=== PATIENT | female | born 1965 | race Caucasian/White ===

== ENCOUNTER 2016-09-17 12:09 | Emergency (ER) | payer MEDICARE, MEDICAID ==
[~2016-09-17] VITALS: Ht 170.2 cm; Wt 108.9 kg
[2016-09-17 12:13] VITALS: BP 110/76
== END 2016-09-17 13:03 | disposition home or self-care (01) ==
LOC: ER 12:11
DX: R19.7 Diarrhea, unspecified (principal)

== ENCOUNTER 2017-08-14 09:30 | Inpatient (IN) | payer MEDICARE, MEDICAID ==
[~2017-08-14] VITALS: Ht 167.6 cm; Wt 106.4 kg
[2017-08-14 10:05] LABS: Hematocrit 37.4 % (36.0-46.0); Hemoglobin 12.5 g/dL (12.2-16.2); Mean Corpuscular Hemoglobin 32.8 pg (28.0-32.0); Mean Corpuscular Hgb Conc. 33.4 g/dL (32.0-36.0); Mean Corpuscular Volume 98.2 fL (80.0-100.0); Platelet Count (auto) 87 10^3/uL (140-450); Red Blood Cells 3.81 10^6/uL (4.0-5.20); White Blood Cell 4.8 10^3/uL (4.4-10.8)
[2017-08-14 10:17] LABS: Red Cell Distribution Width 20.2 % (11.8-14.3)
[2017-08-14 10:18] LABS: Basophils % (manual) 0 (0.0-2.0); Blast Cells 0; Eosinophils % (manual) 0 (0-7); Metamyelocytes % 0; Myelocytes % 0; Promyelocytes % 0; Reactive Lymphocytes 0
[2017-08-14 10:33] LABS: Sodium 141 mmol/L (136-145)
[2017-08-14 10:34] LABS: Alanine Aminotransferase 571 U/L (13-56); Albumin 1.8 g/dL (3.4-5.0); Alkaline Phosphatase 208 U/L (45-117); Amylase 28 U/L (25-115); Anion Gap 8 (5-15); Aspartate Aminotransferase 632 U/L (15-37); BUN/Creatinine Ratio 9.3; Bilirubin, Total 11.1 mg/dL (0.2-1.0); Blood Urea Nitrogen 12 mg/dL (7-18); Calcium 8.8 mg/dL (8.5-10.1); Carbon Dioxide 22 mmol/L (21-32); Chloride 111 mmol/L (98-107); GFR African American 56 mL/min; GFR Non-African American 46 mL/min; Glucose 103 mg/dL (74-106); Lipase 121 U/L (73-393); Potassium 4.1 mmol/L (3.5-5.1)
[2017-08-14 10:48] LABS: Band Neutrophils % (manual) 1; Lymphocytes % (manual) 17 (10.0-50.0); Monocytes % (manual) 11 (0-12)
[2017-08-14] MEDS ORDERED: AZITHROMYCIN 500MG/ 250ML 250 ML IV ONE (11:15)
[2017-08-14] MEDS ORDERED: cefTRIAXone 1GM/10ml IVPUSH 10 ML IV ONE (11:15)
[2017-08-14 11:30] LABS: Lactic Acid w/Reflex 2.4 mmol/L (0.4-2.0)
[2017-08-14] MEDS ORDERED: LACTULOSE 20Gm/30ML SOLN PO PRN (14:00)
[2017-08-14] MEDS ORDERED: CITALOPRAM HYDROBR 20 MG TAB PO ONE (14:15)
[2017-08-14] MEDS ORDERED: FOLIC ACID 1 MG TAB PO ONE (14:15)
[2017-08-14] MEDS ORDERED: PANTOPRAZOLE 40 MG TAB PO ONE (14:15)
[2017-08-14] MEDS: SODIUM CHLORIDE 0.9% 1,000 ML IV SCH (15:23)
[2017-08-14 17:00] VITALS: BP 82/45
[2017-08-14 22:00] VITALS: BP 88/50
[2017-08-14 23:05] VITALS: BP 93/42
[2017-08-15] VITALS (8 sets, daily range): BP systolic 81–93; BP diastolic 39–55
[2017-08-15 06:21] LABS: Basophils # (auto) 0 uL; Basophils % (auto) 0.1 % (0.0-2.0); Eosinophils # (auto) 0 uL; Eosinophils % (auto) 1.5 % (0.0-7.0); Hematocrit 34.2 % (36.0-46.0); Hemoglobin 11.7 g/dL (12.2-16.2); Lymphocytes % (auto) 29.2 % (10.0-50.0); Mean Corpuscular Hemoglobin 33.2 pg (28.0-32.0); Mean Corpuscular Hgb Conc. 34.2 g/dL (32.0-36.0); Mean Corpuscular Volume 96.9 fL (80.0-100.0); Monocytes # (auto) 0.6 uL; Monocytes % (auto) 17.8 % (0.0-12.0); Neutrophils # (auto) 1.7 uL; Neutrophils % (auto) 51.4 % (37.0-80.0); Nucleated Red Blood Cells % 0.4 %; Red Blood Cells 3.53 10^6/uL (4.0-5.20); White Blood Cell 3.3 10^3/uL (4.4-10.8)
[2017-08-15 06:28] LABS: Albumin 1.7 g/dL (3.4-5.0); Calcium 8.5 mg/dL (8.5-10.1); Potassium 3.8 mmol/L (3.5-5.1)
[2017-08-15 06:30] LABS: BUN/Creatinine Ratio 11.1
[2017-08-15 06:31] LABS: INR 1.77 (0.9-1.15); Partial Thromboplastin Time 33.8 sec (23.78-33.04); Prothrombin Time 18.3 sec (9.27-12.13)
[2017-08-15 06:40] LABS: Red Cell Distribution Width 20.2 % (11.8-14.3)
[2017-08-15 06:41] LABS: Platelet Count (auto) 69 10^3/uL (140-450)
[2017-08-15 06:42] LABS: Total Protein 4.5 g/dL (6.4-8.2)
[2017-08-15] MEDS: LEVOTHYROXINE SODIUM 50 MCG TAB PO SCH (06:58)
[2017-08-15] MEDS: SODIUM CHLORIDE 0.9% 1,000 ML IV SCH ×2 (06:58→23:40)
[2017-08-15 10:21] LABS: Urine Bacteria FEW /hpf (None Seen); Urine Blood Negative /uL (Negative); Urine Mucus FEW (None Seen); Urine Specific Gravity 1.012 (1.001-1.035); Urine WBC 3 /hpf (0 - 5)
[2017-08-15] MEDS: CITALOPRAM HYDROBR 20 MG TAB PO SCH (10:22)
[2017-08-15] MEDS: PANTOPRAZOLE 40 MG TAB PO SCH (10:22)
[2017-08-15] MEDS: FOLIC ACID 1 MG TAB PO SCH (10:22)
[2017-08-15] MEDS ORDERED: TOPI50TA53 (11:59)
[2017-08-15] MEDS ORDERED: CITA-77 (11:59)
[2017-08-15] MEDS ORDERED: LEVO125T7 (11:59)
[2017-08-15] MEDS ORDERED: NITR100C6 (11:59)
[2017-08-15] MEDS ORDERED: TRAZ100T2 (11:59)
[2017-08-15] MEDS ORDERED: DIVA250T6 (11:59)
[2017-08-15] MEDS ORDERED: LEVE100020 (11:59)
[2017-08-15] MEDS ORDERED: LURA80TA (11:59)
[2017-08-15 13:57] LABS: Hepatitis B Surface Antigen Negative (Negative)
[2017-08-15 14:16] LABS: Hepatitis A Ab IgM Negative; Hepatitis B Core IgM Negative
[2017-08-15] MEDS ORDERED: LEVE500T22 PO (14:18)
[2017-08-15] MEDS ORDERED: TOPI25CA5 PO (14:20)
[2017-08-15] MEDS ORDERED: PANT40TA2 PO (14:21)
[2017-08-15] MEDS ORDERED: FOLI1TAB6 PO (14:22)
[2017-08-15] MEDS ORDERED: CHOL1TAB PO (14:26)
[2017-08-15] MEDS ORDERED: PREN27TA PO (14:26)
[2017-08-15] MEDS ORDERED: FERR-20 PO (14:26)
[2017-08-15 17:50] LABS: Hepatitis C Antibody Negative (Negative)
[2017-08-16] VITALS (8 sets, daily range): BP systolic 78–95; BP diastolic 42–46
[2017-08-16] MEDS: LEVOTHYROXINE SODIUM 50 MCG TAB PO SCH (06:53)
[2017-08-16 06:59] LABS: Albumin 1.6 g/dL (3.4-5.0); Calcium 8.5 mg/dL (8.5-10.1)
[2017-08-16 07:01] LABS: BUN/Creatinine Ratio 13.4
[2017-08-16 07:03] LABS: Bilirubin, Total 11.3 mg/dL (0.2-1.0); Total Protein 4.5 g/dL (6.4-8.2)
[2017-08-16 07:10] LABS: Hematocrit 34.1 % (36.0-46.0); Hemoglobin 11.8 g/dL (12.2-16.2); Mean Corpuscular Hemoglobin 33.3 pg (28.0-32.0); Mean Corpuscular Hgb Conc. 34.7 g/dL (32.0-36.0); Platelet Count (auto) 66 10^3/uL (140-450); Red Blood Cells 3.55 10^6/uL (4.0-5.20); White Blood Cell 3.6 10^3/uL (4.4-10.8)
[2017-08-16 07:41] LABS: Red Cell Distribution Width 20.7 % (11.8-14.3)
[2017-08-16 07:42] LABS: Band Neutrophils % (manual) 0; Basophils % (manual) 0 (0.0-2.0); Blast Cells 0; Myelocytes % 0; Promyelocytes % 0
[2017-08-16] MEDS: FOLIC ACID 1 MG TAB PO SCH (10:25)
[2017-08-16] MEDS: PANTOPRAZOLE 40 MG TAB PO SCH (10:25)
[2017-08-16] MEDS: CITALOPRAM HYDROBR 20 MG TAB PO SCH (10:25)
[2017-08-16 11:18] LABS: Lymphocytes % (manual) 22 (10.0-50.0)
[2017-08-16 11:19] LABS: Eosinophils % (manual) 1 (0-7); Metamyelocytes % 1; Monocytes % (manual) 16 (0-12); Reactive Lymphocytes 2
[2017-08-16] MEDS ORDERED: cefTRIAXone 1GM/10ml IVPUSH 10 ML IV ONE (12:00)
[2017-08-16] MEDS ORDERED: AZITHROMYCIN 500MG/ 250ML 250 ML IV ONE (12:00)
[2017-08-16] MEDS: SODIUM CHLORIDE 0.9% 1,000 ML IV SCH (19:07)
[2017-08-17] VITALS (7 sets, daily range): BP systolic 86–96; BP diastolic 41–53
[2017-08-17 05:57] LABS: Albumin 1.5 g/dL (3.4-5.0); BUN/Creatinine Ratio 12.6; Calcium 8.3 mg/dL (8.5-10.1); Potassium 4.1 mmol/L (3.5-5.1)
[2017-08-17 05:59] LABS: Bilirubin, Total 12.3 mg/dL (0.2-1.0); Total Protein 4.3 g/dL (6.4-8.2)
[2017-08-17 06:05] LABS: Hematocrit 33.4 % (36.0-46.0); Hemoglobin 11.7 g/dL (12.2-16.2); Mean Corpuscular Hemoglobin 33.6 pg (28.0-32.0); Mean Corpuscular Hgb Conc. 35.1 g/dL (32.0-36.0); Mean Corpuscular Volume 95.6 fL (80.0-100.0); Platelet Count (auto) 66 10^3/uL (140-450); White Blood Cell 3.7 10^3/uL (4.4-10.8)
[2017-08-17 06:16] LABS: Red Cell Distribution Width 20.9 % (11.8-14.3)
[2017-08-17] MEDS: LEVOTHYROXINE SODIUM 50 MCG TAB PO SCH (06:55)
[2017-08-17 08:32] LABS: Basophils # (auto) 0 uL; Basophils % (auto) 0.6 % (0.0-2.0); Eosinophils # (auto) 0.1 uL; Eosinophils % (auto) 2.4 % (0.0-7.0); Lymphocytes # (auto) 1.4 uL; Lymphocytes % (auto) 36.4 % (10.0-50.0); Monocytes # (auto) 0.7 uL; Monocytes % (auto) 18.1 % (0.0-12.0); Neutrophils # (auto) 1.7 uL; Neutrophils % (auto) 42.5 % (37.0-80.0)
[2017-08-17] MEDS ORDERED: MIDAZOLAM HCL 1MG/1ML-2 ML VIAL ONE (09:10)
[2017-08-17] MEDS ORDERED: fentaNYL CITRATE 100 MCG/2 ML VL ONE (09:11)
[2017-08-17] MEDS ORDERED: LIDOCAINE 2%HCL (LOCAL ANESTH.) INJ 20ML MDV ONE ×2 (09:15→10:16)
[2017-08-17] MEDS ORDERED: GELATIN 1 SPONGE SIZE 50 TOP ONE (09:15)
[2017-08-17] MEDS: cefTRIAXone 1GM/10ml IVPUSH 10 ML IV SCH (12:39)
[2017-08-17] MEDS: PANTOPRAZOLE 40 MG TAB PO SCH (12:40)
[2017-08-17] MEDS: AZITHROMYCIN 500MG/ 250ML 250 ML IV SCH (12:40)
[2017-08-17] MEDS: CITALOPRAM HYDROBR 20 MG TAB PO SCH (12:40)
[2017-08-17] MEDS: FOLIC ACID 1 MG TAB PO SCH (12:40)
[2017-08-18 05:22] VITALS: BP 84/46
[2017-08-18] MEDS: methylPREDNISolone SOD SUCC 40 MG/ML VL IV SCH ×3 (05:57→22:45)
[2017-08-18] MEDS: LEVOTHYROXINE SODIUM 50 MCG TAB PO SCH (05:58)
[2017-08-18 06:54] LABS: Hemoglobin 11.1 g/dL (12.2-16.2); White Blood Cell 3.6 10^3/uL (4.4-10.8)
[2017-08-18 06:58] LABS: Hematocrit 31.1 % (36.0-46.0); Mean Corpuscular Hemoglobin 34.1 pg (28.0-32.0); Mean Corpuscular Hgb Conc. 35.7 g/dL (32.0-36.0); Mean Corpuscular Volume 95.7 fL (80.0-100.0); Platelet Count (auto) 66 10^3/uL (140-450); Red Blood Cells 3.25 10^6/uL (4.0-5.20)
[2017-08-18 06:59] LABS: Albumin 1.5 g/dL (3.4-5.0); BUN/Creatinine Ratio 13.5; Calcium 8.2 mg/dL (8.5-10.1); Potassium 3.8 mmol/L (3.5-5.1)
[2017-08-18 07:02] LABS: Bilirubin, Total 14.1 mg/dL (0.2-1.0); Total Protein 4.1 g/dL (6.4-8.2)
[2017-08-18 07:04] LABS: Red Cell Distribution Width 21.3 % (11.8-14.3)
[2017-08-18 07:06] LABS: Band Neutrophils % (manual) 0; Basophils % (manual) 0 (0.0-2.0); Blast Cells 0; Myelocytes % 0; Promyelocytes % 0; Reactive Lymphocytes 0
[2017-08-18 07:17] LABS: INR 1.66 (0.9-1.15); Prothrombin Time 17.3 sec (9.27-12.13)
[2017-08-18 09:00] VITALS: BP_SYST 102; BP_SYST 97; BP_DIAS 50; BP_DIAS 54
[2017-08-18 09:36] LABS: Eosinophils % (manual) 2 (0-7); Lymphocytes % (manual) 25 (10.0-50.0); Monocytes % (manual) 12 (0-12)
[2017-08-18 09:37] LABS: Metamyelocytes % 2
[2017-08-18] MEDS: AZITHROMYCIN 500MG/ 250ML 250 ML IV SCH (09:57)
[2017-08-18] MEDS: cefTRIAXone 1GM/10ml IVPUSH 10 ML IV SCH (09:57)
[2017-08-18] MEDS: FOLIC ACID 1 MG TAB PO SCH (09:58)
[2017-08-18] MEDS: PANTOPRAZOLE 40 MG TAB PO SCH (09:58)
[2017-08-18] MEDS: CITALOPRAM HYDROBR 20 MG TAB PO SCH (09:58)
[2017-08-18 13:00] VITALS: BP 86/52
[2017-08-18 17:00] VITALS: BP 101/42
[2017-08-18 22:00] VITALS: BP 97/49
[2017-08-19 05:00] VITALS: BP 106/42
[2017-08-19] MEDS: methylPREDNISolone SOD SUCC 40 MG/ML VL IV SCH ×3 (06:34→22:34)
[2017-08-19] MEDS: LEVOTHYROXINE SODIUM 50 MCG TAB PO SCH (06:35)
[2017-08-19 07:03] LABS: Albumin 1.9 g/dL (3.4-5.0); Potassium 4.2 mmol/L (3.5-5.1)
[2017-08-19 07:06] LABS: BUN/Creatinine Ratio 17.3
[2017-08-19 07:17] LABS: Total Protein 5.2 g/dL (6.4-8.2)
[2017-08-19 07:23] LABS: Bilirubin, Total 15.9 mg/dL (0.2-1.0)
[2017-08-19 07:30] LABS: Basophils # (auto) 0 uL; Basophils % (auto) 0.1 % (0.0-2.0); Eosinophils # (auto) 0 uL; Hematocrit 36.2 % (36.0-46.0); Hemoglobin 12.8 g/dL (12.2-16.2); Lymphocytes # (auto) 0.8 uL; Lymphocytes % (auto) 10.9 % (10.0-50.0); Mean Corpuscular Hemoglobin 33.5 pg (28.0-32.0); Mean Corpuscular Hgb Conc. 35.3 g/dL (32.0-36.0); Monocytes # (auto) 0.4 uL; Monocytes % (auto) 5.8 % (0.0-12.0); Neutrophils # (auto) 6.3 uL; Neutrophils % (auto) 83.2 % (37.0-80.0); Nucleated Red Blood Cells % 0.1 %; Platelet Count (auto) 81 10^3/uL (140-450); Red Blood Cells 3.82 10^6/uL (4.0-5.20); White Blood Cell 7.6 10^3/uL (4.4-10.8)
[2017-08-19 07:40] LABS: Red Cell Distribution Width 21.8 % (11.8-14.3)
[2017-08-19 08:57] LABS: INR 1.54 (0.9-1.15); Prothrombin Time 16.1 sec (9.27-12.13)
[2017-08-19 09:00] VITALS: BP 106/54
[2017-08-19] MEDS: PANTOPRAZOLE 40 MG TAB PO SCH (10:09)
[2017-08-19] MEDS: AZITHROMYCIN 500MG/ 250ML 250 ML IV SCH (10:09)
[2017-08-19] MEDS: CITALOPRAM HYDROBR 20 MG TAB PO SCH (10:09)
[2017-08-19] MEDS: FOLIC ACID 1 MG TAB PO SCH (10:09)
[2017-08-19] MEDS: cefTRIAXone 1GM/10ml IVPUSH 10 ML IV SCH (10:09)
[2017-08-19 13:00] VITALS: BP 94/57
[2017-08-19 16:27] VITALS: BP 124/74
[2017-08-19 16:37] VITALS: BP 105/58
[2017-08-19 21:43] VITALS: BP 93/48
[2017-08-20 04:35] VITALS: BP 96/49
[2017-08-20] MEDS: methylPREDNISolone SOD SUCC 40 MG/ML VL IV SCH ×3 (06:16→21:59)
[2017-08-20] MEDS: LEVOTHYROXINE SODIUM 50 MCG TAB PO SCH (06:17)
[2017-08-20 06:56] LABS: Basophils # (auto) 0 uL; Basophils % (auto) 0.1 % (0.0-2.0); Eosinophils # (auto) 0 uL; Hematocrit 36.5 % (36.0-46.0); Hemoglobin 12.9 g/dL (12.2-16.2); Lymphocytes # (auto) 0.9 uL; Lymphocytes % (auto) 10.1 % (10.0-50.0); Mean Corpuscular Hemoglobin 33.8 pg (28.0-32.0); Mean Corpuscular Hgb Conc. 35.2 g/dL (32.0-36.0); Mean Corpuscular Volume 96.1 fL (80.0-100.0); Monocytes # (auto) 0.5 uL; Monocytes % (auto) 5.6 % (0.0-12.0); Neutrophils # (auto) 7.4 uL; Neutrophils % (auto) 84.2 % (37.0-80.0); Nucleated Red Blood Cells % 0.2 %; Platelet Count (auto) 93 10^3/uL (140-450); White Blood Cell 8.7 10^3/uL (4.4-10.8)
[2017-08-20 07:03] LABS: Red Cell Distribution Width 23.8 % (11.8-14.3)
[2017-08-20 08:49] VITALS: BP 105/46
[2017-08-20] MEDS: cefTRIAXone 1GM/10ml IVPUSH 10 ML IV SCH (09:06)
[2017-08-20] MEDS: PANTOPRAZOLE 40 MG TAB PO SCH (10:07)
[2017-08-20] MEDS: FOLIC ACID 1 MG TAB PO SCH (10:07)
[2017-08-20] MEDS: CITALOPRAM HYDROBR 20 MG TAB PO SCH (10:07)
[2017-08-20] MEDS: AZITHROMYCIN 500MG/ 250ML 250 ML IV SCH (10:07)
[2017-08-20 13:00] VITALS: BP 93/55
[2017-08-20 17:28] VITALS: BP 102/43
[2017-08-20 21:43] VITALS: BP 96/58
[2017-08-21 05:00] VITALS: BP 90/51
[2017-08-21] MEDS: methylPREDNISolone SOD SUCC 40 MG/ML VL IV SCH ×3 (05:30→22:12)
[2017-08-21 05:45] LABS: Basophils # (auto) 0 uL; Eosinophils # (auto) 0 uL; Lymphocytes % (auto) 12.6 % (10.0-50.0); Neutrophils # (auto) 5.3 uL; White Blood Cell 6.7 10^3/uL (4.4-10.8)
[2017-08-21 05:48] LABS: Basophils % (auto) 0.2 % (0.0-2.0); Hematocrit 36.8 % (36.0-46.0); Hemoglobin 12.9 g/dL (12.2-16.2); Lymphocytes # (auto) 0.8 uL; Mean Corpuscular Hemoglobin 33.7 pg (28.0-32.0); Mean Corpuscular Hgb Conc. 35.2 g/dL (32.0-36.0); Mean Corpuscular Volume 95.9 fL (80.0-100.0); Monocytes # (auto) 0.5 uL; Monocytes % (auto) 8.2 % (0.0-12.0); Platelet Count (auto) 115 10^3/uL (140-450); Red Blood Cells 3.84 10^6/uL (4.0-5.20)
[2017-08-21 06:00] LABS: Red Cell Distribution Width 24.2 % (11.8-14.3)
[2017-08-21 06:01] LABS: INR 1.55 (0.9-1.15); Prothrombin Time 16.2 sec (9.27-12.13)
[2017-08-21 06:15] LABS: Albumin 1.9 g/dL (3.4-5.0); BUN/Creatinine Ratio 27.2; Bilirubin, Total 12.8 mg/dL (0.2-1.0); Calcium 8.9 mg/dL (8.5-10.1); Potassium 3.9 mmol/L (3.5-5.1); Total Protein 5.2 g/dL (6.4-8.2)
[2017-08-21] MEDS: LEVOTHYROXINE SODIUM 50 MCG TAB PO SCH (07:00)
[2017-08-21 09:00] VITALS: BP 91/52
[2017-08-21] MEDS: AZITHROMYCIN 250 MG TAB PO SCH (10:00)
[2017-08-21] MEDS: cefTRIAXone 1GM/10ml IVPUSH 10 ML IV SCH (10:40)
[2017-08-21] MEDS: FOLIC ACID 1 MG TAB PO SCH (10:40)
[2017-08-21] MEDS: CITALOPRAM HYDROBR 20 MG TAB PO SCH (10:41)
[2017-08-21] MEDS: PANTOPRAZOLE 40 MG TAB PO SCH (10:41)
[2017-08-21 13:00] VITALS: BP 98/53
[2017-08-21 17:00] VITALS: BP 99/47
[2017-08-21 22:00] VITALS: BP 100/57
[2017-08-22 05:38] VITALS: BP 105/62
[2017-08-22] MEDS: methylPREDNISolone SOD SUCC 40 MG/ML VL IV SCH (06:00)
[2017-08-22] MEDS: LEVOTHYROXINE SODIUM 50 MCG TAB PO SCH (06:01)
[2017-08-22 06:15] LABS: Albumin 1.9 g/dL (3.4-5.0); Bilirubin, Total 12.5 mg/dL (0.2-1.0); Calcium 8.2 mg/dL (8.5-10.1); Potassium 3.7 mmol/L (3.5-5.1); Total Protein 5.2 g/dL (6.4-8.2)
[2017-08-22 10:24] VITALS: BP 102/59
[2017-08-22] MEDS: AZITHROMYCIN 250 MG TAB PO SCH (10:52)
[2017-08-22] MEDS: PANTOPRAZOLE 40 MG TAB PO SCH (10:52)
[2017-08-22] MEDS: cefTRIAXone 1GM/10ml IVPUSH 10 ML IV SCH (10:52)
[2017-08-22] MEDS: FOLIC ACID 1 MG TAB PO SCH (10:53)
[2017-08-22] MEDS: CITALOPRAM HYDROBR 20 MG TAB PO SCH (10:53)
[2017-08-22 12:30] VITALS: BP 128/75
[2017-08-22 17:28] VITALS: BP 126/69
[2017-08-22 22:00] VITALS: BP 117/63
[2017-08-23 05:00] VITALS: BP 106/58
[2017-08-23 05:53] LABS: Hematocrit 36.8 % (36.0-46.0); Hemoglobin 12.8 g/dL (12.2-16.2); Mean Corpuscular Hemoglobin 33.6 pg (28.0-32.0); Mean Corpuscular Hgb Conc. 34.9 g/dL (32.0-36.0); Mean Corpuscular Volume 96.2 fL (80.0-100.0); Platelet Count (auto) 126 10^3/uL (140-450); Red Blood Cells 3.82 10^6/uL (4.0-5.20); White Blood Cell 9.5 10^3/uL (4.4-10.8)
[2017-08-23 05:57] LABS: Red Cell Distribution Width 24.2 % (11.8-14.3)
[2017-08-23] MEDS: LEVOTHYROXINE SODIUM 50 MCG TAB PO SCH (05:57)
[2017-08-23 05:58] LABS: Basophils % (manual) 0 (0.0-2.0); Blast Cells 0; Eosinophils % (manual) 0 (0-7); Metamyelocytes % 0; Myelocytes % 0; Promyelocytes % 0; Reactive Lymphocytes 0
[2017-08-23 06:11] LABS: Albumin 1.8 g/dL (3.4-5.0); Calcium 8.1 mg/dL (8.5-10.1); Potassium 3.7 mmol/L (3.5-5.1)
[2017-08-23 06:15] LABS: BUN/Creatinine Ratio 34.4
[2017-08-23 06:17] LABS: Bilirubin, Total 14.7 mg/dL (0.2-1.0); Total Protein 4.8 g/dL (6.4-8.2)
[2017-08-23 08:18] LABS: Band Neutrophils % (manual) 5; Lymphocytes % (manual) 8 (10.0-50.0); Monocytes % (manual) 22 (0-12)
[2017-08-23 09:00] VITALS: BP 125/63
[2017-08-23] MEDS: cefTRIAXone 1GM/10ml IVPUSH 10 ML IV SCH (10:46)
[2017-08-23] MEDS: PANTOPRAZOLE 40 MG TAB PO SCH (10:47)
[2017-08-23] MEDS: FOLIC ACID 1 MG TAB PO SCH (10:47)
[2017-08-23] MEDS: CITALOPRAM HYDROBR 20 MG TAB PO SCH (10:47)
[2017-08-23] MEDS: AZITHROMYCIN 250 MG TAB PO SCH (10:48)
[2017-08-23] MEDS ORDERED: TUBERCULIN PPD 5 UNIT/0.1 ML ID ONE (11:45)
[2017-08-23 13:00] VITALS: BP 96/47
[2017-08-23 17:00] VITALS: BP 100/50
[2017-08-23] MEDS: predniSONE 20 MG TAB PO SCH (17:59)
[2017-08-23 22:00] VITALS: BP 107/47
[2017-08-24 05:00] VITALS: BP 98/46
[2017-08-24 05:52] LABS: Albumin 1.8 g/dL (3.4-5.0); Bilirubin, Total 15.9 mg/dL (0.2-1.0); Calcium 8.2 mg/dL (8.5-10.1); Potassium 4.6 mmol/L (3.5-5.1); Total Protein 4.5 g/dL (6.4-8.2)
[2017-08-24] MEDS: LEVOTHYROXINE SODIUM 50 MCG TAB PO SCH (06:37)
[2017-08-24 09:00] VITALS: BP 112/48
[2017-08-24] MEDS: CITALOPRAM HYDROBR 20 MG TAB PO SCH (09:20)
[2017-08-24] MEDS: PANTOPRAZOLE 40 MG TAB PO SCH (09:20)
[2017-08-24] MEDS: AZITHROMYCIN 250 MG TAB PO SCH (09:20)
[2017-08-24] MEDS: FOLIC ACID 1 MG TAB PO SCH (09:20)
[2017-08-24] MEDS: predniSONE 20 MG TAB PO SCH (09:20)
[2017-08-24 13:00] VITALS: BP_SYST 114; BP_SYST 98; BP_DIAS 47; BP_DIAS 57
[2017-08-24 17:00] VITALS: BP 98/47
[2017-08-24 22:00] VITALS: BP 107/51
[2017-08-25 06:09] VITALS: BP 117/53
[2017-08-25 06:31] LABS: Potassium 4.2 mmol/L (3.5-5.1)
[2017-08-25 06:35] LABS: Albumin 1.8 g/dL (3.4-5.0); BUN/Creatinine Ratio 32.7; Calcium 8.1 mg/dL (8.5-10.1)
[2017-08-25 06:49] LABS: Bilirubin, Total 16.2 mg/dL (0.2-1.0); Total Protein 4.5 g/dL (6.4-8.2)
[2017-08-25] MEDS: LEVOTHYROXINE SODIUM 50 MCG TAB PO SCH (06:54)
[2017-08-25 09:00] VITALS: BP 107/57
[2017-08-25] MEDS: CITALOPRAM HYDROBR 20 MG TAB PO SCH (10:03)
[2017-08-25] MEDS: FOLIC ACID 1 MG TAB PO SCH (10:03)
[2017-08-25] MEDS: PANTOPRAZOLE 40 MG TAB PO SCH (10:05)
[2017-08-25] MEDS: predniSONE 20 MG TAB PO SCH (10:05)
[2017-08-25 13:00] VITALS: BP 84/55
[2017-08-25 17:00] VITALS: BP 107/57
[2017-08-25 21:54] VITALS: BP 90/54
[2017-08-26 04:28] VITALS: BP 111/59
[2017-08-26 06:37] LABS: Basophils # (auto) 0 uL; Basophils % (auto) 0.1 % (0.0-2.0); Eosinophils # (auto) 0 uL; Eosinophils % (auto) 0.3 % (0.0-7.0); Hemoglobin 11.8 g/dL (12.2-16.2); White Blood Cell 8.1 10^3/uL (4.4-10.8)
[2017-08-26 06:40] LABS: Hematocrit 33.3 % (36.0-46.0); Lymphocytes % (auto) 12.3 % (10.0-50.0); Mean Corpuscular Hemoglobin 34.7 pg (28.0-32.0); Mean Corpuscular Hgb Conc. 35.4 g/dL (32.0-36.0); Mean Corpuscular Volume 98.1 fL (80.0-100.0); Monocytes % (auto) 12.1 % (0.0-12.0); Neutrophils # (auto) 6.1 uL; Neutrophils % (auto) 75.2 % (37.0-80.0); Platelet Count (auto) 83 10^3/uL (140-450); Red Cell Distribution Width 23.9 % (11.8-14.3)
[2017-08-26] MEDS: LEVOTHYROXINE SODIUM 50 MCG TAB PO SCH (06:40)
[2017-08-26 07:25] LABS: Albumin 1.8 g/dL (3.4-5.0); BUN/Creatinine Ratio 30.5; Bilirubin, Total 16.2 mg/dL (0.2-1.0); Calcium 8.4 mg/dL (8.5-10.1); Potassium 4.5 mmol/L (3.5-5.1); Total Protein 4.5 g/dL (6.4-8.2)
[2017-08-26 07:32] LABS: INR 1.36 (0.9-1.15); Prothrombin Time 14.3 sec (9.27-12.13)
[2017-08-26 09:00] VITALS: BP 82/45
[2017-08-26] MEDS: predniSONE 20 MG TAB PO SCH (10:10)
[2017-08-26] MEDS: PANTOPRAZOLE 40 MG TAB PO SCH (10:10)
[2017-08-26] MEDS: FOLIC ACID 1 MG TAB PO SCH (10:10)
[2017-08-26] MEDS: CITALOPRAM HYDROBR 20 MG TAB PO SCH (10:10)
[2017-08-26 13:00] VITALS: BP 96/51
[2017-08-26 17:00] VITALS: BP 98/55
[2017-08-26 22:00] VITALS: BP 107/56
[2017-08-27 05:00] VITALS: BP 114/66
[2017-08-27 05:58] LABS: Basophils # (auto) 0 uL; Basophils % (auto) 0.1 % (0.0-2.0); Eosinophils # (auto) 0 uL; Nucleated Red Blood Cells % 0.1 %; Platelet Count (auto) 91 10^3/uL (140-450)
[2017-08-27 06:01] LABS: Eosinophils % (auto) 0.3 % (0.0-7.0); Hematocrit 32.7 % (36.0-46.0); Hemoglobin 11.8 g/dL (12.2-16.2); Lymphocytes # (auto) 0.8 uL; Mean Corpuscular Hemoglobin 35.4 pg (28.0-32.0); Mean Corpuscular Volume 98.2 fL (80.0-100.0); Monocytes % (auto) 10.6 % (0.0-12.0); Neutrophils # (auto) 7.5 uL; Red Blood Cells 3.33 10^6/uL (4.0-5.20); White Blood Cell 9.3 10^3/uL (4.4-10.8)
[2017-08-27 06:11] LABS: Red Cell Distribution Width 23.5 % (11.8-14.3)
[2017-08-27 06:17] LABS: INR 1.4 (0.9-1.15); Prothrombin Time 14.7 sec (9.27-12.13)
[2017-08-27 06:29] LABS: Albumin 1.7 g/dL (3.4-5.0); BUN/Creatinine Ratio 34.5; Bilirubin, Total 15.2 mg/dL (0.2-1.0); Potassium 4.3 mmol/L (3.5-5.1); Total Protein 4.5 g/dL (6.4-8.2)
[2017-08-27] MEDS: LEVOTHYROXINE SODIUM 50 MCG TAB PO SCH (06:53)
[2017-08-27 08:00] VITALS: BP 108/59
[2017-08-27 08:49] VITALS: BP 108/59
[2017-08-27] MEDS: CITALOPRAM HYDROBR 20 MG TAB PO SCH (10:10)
[2017-08-27] MEDS: predniSONE 20 MG TAB PO SCH (10:11)
[2017-08-27] MEDS: PANTOPRAZOLE 40 MG TAB PO SCH (10:11)
[2017-08-27] MEDS: FOLIC ACID 1 MG TAB PO SCH (10:11)
[2017-08-27 13:09] VITALS: BP 100/55
[2017-08-27 17:00] VITALS: BP 97/45
[2017-08-27] MEDS: PRO-STAT 64 30ML PO SCH (20:39)
[2017-08-27 21:41] VITALS: BP 99/53
[2017-08-27] MEDS: ASCORBIC ACID 500 MG TAB PO SCH (22:14)
[2017-08-28 05:09] VITALS: BP 118/51
[2017-08-28] MEDS: LEVOTHYROXINE SODIUM 50 MCG TAB PO SCH (06:18)
[2017-08-28 06:40] LABS: Red Blood Cells 3.25 10^6/uL (4.0-5.20)
[2017-08-28 06:48] LABS: Hematocrit 32.5 % (36.0-46.0); Hemoglobin 11.6 g/dL (12.2-16.2); Mean Corpuscular Hemoglobin 35.6 pg (28.0-32.0); Mean Corpuscular Hgb Conc. 35.7 g/dL (32.0-36.0); Platelet Count (auto) 86 10^3/uL (140-450)
[2017-08-28 06:54] LABS: Red Cell Distribution Width 23.4 % (11.8-14.3)
[2017-08-28 06:56] LABS: Band Neutrophils % (manual) 0; Basophils % (manual) 0 (0.0-2.0); Blast Cells 0; Metamyelocytes % 0; Myelocytes % 0; Promyelocytes % 0; Reactive Lymphocytes 0
[2017-08-28 07:04] LABS: Albumin 1.8 g/dL (3.4-5.0); BUN/Creatinine Ratio 38.3; Bilirubin, Total 14.2 mg/dL (0.2-1.0); Calcium 8.3 mg/dL (8.5-10.1); Potassium 4.5 mmol/L (3.5-5.1); Total Protein 4.5 g/dL (6.4-8.2)
[2017-08-28] MEDS: PRO-STAT 64 30ML PO SCH ×2 (07:17→17:23)
[2017-08-28 07:28] LABS: Eosinophils % (manual) 2 (0-7); Lymphocytes % (manual) 6 (10.0-50.0); Monocytes % (manual) 10 (0-12)
[2017-08-28 09:00] VITALS: BP 102/60
[2017-08-28] MEDS: PANTOPRAZOLE 40 MG TAB PO SCH (09:48)
[2017-08-28] MEDS: ASCORBIC ACID 500 MG TAB PO SCH ×2 (09:48→22:54)
[2017-08-28] MEDS: predniSONE 20 MG TAB PO SCH (09:48)
[2017-08-28] MEDS: FOLIC ACID 1 MG TAB PO SCH (09:48)
[2017-08-28] MEDS: CITALOPRAM HYDROBR 20 MG TAB PO SCH (09:48)
[2017-08-28] MEDS: MULTIPLE VITAMINS W/ MINERALS TAB PO SCH (09:48)
[2017-08-28 13:00] VITALS: BP 97/45
[2017-08-28 17:00] VITALS: BP 108/53
[2017-08-28 22:00] VITALS: BP 101/49
[2017-08-29] VITALS (7 sets, daily range): BP systolic 86–116; BP diastolic 40–66
[2017-08-29 05:58] LABS: Basophils # (auto) 0 uL; Basophils % (auto) 0.1 % (0.0-2.0); Eosinophils # (auto) 0 uL; Hemoglobin 11.6 g/dL (12.2-16.2); Neutrophils # (auto) 9.6 uL; White Blood Cell 11.6 10^3/uL (4.4-10.8)
[2017-08-29 06:01] LABS: Eosinophils % (auto) 0.3 % (0.0-7.0); Hematocrit 33.4 % (36.0-46.0); Lymphocytes % (auto) 8.4 % (10.0-50.0); Mean Corpuscular Hemoglobin 34.8 pg (28.0-32.0); Mean Corpuscular Hgb Conc. 34.8 g/dL (32.0-36.0); Mean Corpuscular Volume 100.2 fL (80.0-100.0); Monocytes % (auto) 8.3 % (0.0-12.0); Neutrophils % (auto) 82.9 % (37.0-80.0); Nucleated Red Blood Cells % 0.1 %; Platelet Count (auto) 97 10^3/uL (140-450); Red Blood Cells 3.33 10^6/uL (4.0-5.20)
[2017-08-29 06:03] LABS: Red Cell Distribution Width 23.8 % (11.8-14.3)
[2017-08-29 06:19] LABS: Potassium 4.3 mmol/L (3.5-5.1)
[2017-08-29 06:24] LABS: Albumin 1.8 g/dL (3.4-5.0); Bilirubin, Direct 10.9 mg/dL (0-0.2); Total Protein 4.6 g/dL (6.4-8.2)
[2017-08-29 06:31] LABS: Albumin 1.8 g/dL (3.4-5.0); BUN/Creatinine Ratio 34.1; Calcium 8.2 mg/dL (8.5-10.1); Total Protein 4.6 g/dL (6.4-8.2)
[2017-08-29] MEDS: LEVOTHYROXINE SODIUM 50 MCG TAB PO SCH (07:07)
[2017-08-29] MEDS: PRO-STAT 64 30ML PO SCH ×2 (08:44→18:45)
[2017-08-29] MEDS: predniSONE 20 MG TAB PO SCH (09:46)
[2017-08-29] MEDS: CITALOPRAM HYDROBR 20 MG TAB PO SCH (09:46)
[2017-08-29] MEDS: PANTOPRAZOLE 40 MG TAB PO SCH (09:47)
[2017-08-29] MEDS: MULTIPLE VITAMINS W/ MINERALS TAB PO SCH (09:47)
[2017-08-29] MEDS: FOLIC ACID 1 MG TAB PO SCH (09:47)
[2017-08-29] MEDS: ASCORBIC ACID 500 MG TAB PO SCH ×2 (09:47→22:47)
[2017-08-29] MEDS ORDERED: LACTULOSE 20Gm/30ML SOLN PO PRN (11:30)
[2017-08-30] VITALS (7 sets, daily range): BP systolic 81–118; BP diastolic 38–68
[2017-08-30 06:27] LABS: Albumin 1.7 g/dL (3.4-5.0); BUN/Creatinine Ratio 37.2; Bilirubin, Total 11.8 mg/dL (0.2-1.0); Calcium 8.1 mg/dL (8.5-10.1); Potassium 4.4 mmol/L (3.5-5.1); Total Protein 4.4 g/dL (6.4-8.2)
[2017-08-30] MEDS: LEVOTHYROXINE SODIUM 50 MCG TAB PO SCH (06:35)
[2017-08-30] MEDS: CITALOPRAM HYDROBR 20 MG TAB PO SCH (09:59)
[2017-08-30] MEDS: PANTOPRAZOLE 40 MG TAB PO SCH (10:00)
[2017-08-30] MEDS: ASCORBIC ACID 500 MG TAB PO SCH ×2 (10:00→22:06)
[2017-08-30] MEDS: predniSONE 20 MG TAB PO SCH (10:00)
[2017-08-30] MEDS: MULTIPLE VITAMINS W/ MINERALS TAB PO SCH (10:00)
[2017-08-30] MEDS: FOLIC ACID 1 MG TAB PO SCH (10:00)
[2017-08-30] MEDS: PRO-STAT 64 30ML PO SCH ×2 (10:01→18:06)
[2017-08-30] MEDS: LEVETIRACETAM 500 MG TAB PO SCH ×2 (12:00→22:06)
[2017-08-30] MEDS: TOPIRAMATE 25 MG TAB PO SCH ×2 (12:00→22:06)
[2017-08-30 14:03] LABS: Albumin 1.9 g/dL (3.4-5.0); BUN/Creatinine Ratio 32.6; Bilirubin, Total 13.4 mg/dL (0.2-1.0); Calcium 8.4 mg/dL (8.5-10.1); Potassium 4.4 mmol/L (3.5-5.1); Total Protein 4.9 g/dL (6.4-8.2)
[2017-08-31 04:57] VITALS: BP 98/72
[2017-08-31] MEDS: LEVOTHYROXINE SODIUM 50 MCG TAB PO SCH (06:35)
[2017-08-31 08:00] VITALS: BP 143/73
[2017-08-31 09:00] VITALS: BP 97/45
[2017-08-31] MEDS: PRO-STAT 64 30ML PO SCH (09:13)
[2017-08-31] MEDS: ASCORBIC ACID 500 MG TAB PO SCH (09:54)
[2017-08-31] MEDS: predniSONE 20 MG TAB PO SCH (09:54)
[2017-08-31] MEDS: PANTOPRAZOLE 40 MG TAB PO SCH (09:54)
[2017-08-31] MEDS: MULTIPLE VITAMINS W/ MINERALS TAB PO SCH (09:54)
[2017-08-31] MEDS: TOPIRAMATE 25 MG TAB PO SCH (09:54)
[2017-08-31] MEDS: LEVETIRACETAM 500 MG TAB PO SCH (09:55)
[2017-08-31] MEDS: CITALOPRAM HYDROBR 20 MG TAB PO SCH (09:55)
[2017-08-31] MEDS: FOLIC ACID 1 MG TAB PO SCH (09:55)
[2017-08-31 13:00] VITALS: BP 79/33
[2017-08-31 17:00] VITALS: BP 94/62
== END 2017-08-31 20:24 | disposition home or self-care (01) | DRG 441 ==
LOC: EDBD 09:30 → ER 09:30 → OVERFLOW 09:31 → WEST WING 15:05
PROVIDERS: ADMIT Internal Medicine; ATTEND Internal Medicine
PROC: 0FB03ZX Excision of Liver, Percutaneous Approach, Diagnostic (ICD-10-PCS; principal; 2017-08-17)
PROC: 0W9G3ZZ Drainage of Peritoneal Cavity, Percutaneous Approach (ICD-10-PCS; 2017-08-17)
DX: K72.00 Acute and subacute hepatic failure without coma (principal); J18.9 Pneumonia, unspecified organism; E43 Unspecified severe protein-calorie malnutrition; K75.4 Autoimmune hepatitis; F31.9 Bipolar disorder, unspecified; E66.9 Obesity, unspecified; F79 Unspecified intellectual disabilities; E03.9 Hypothyroidism, unspecified; G40.909 Epilepsy, unspecified, not intractable, without status epilepticus; F41.9 Anxiety disorder, unspecified; R55 Syncope and collapse; D69.6 Thrombocytopenia, unspecified; K72.90 Hepatic failure, unspecified without coma; N20.9 Urinary calculus, unspecified; F20.9 Schizophrenia, unspecified; J45.909 Unspecified asthma, uncomplicated; D75.9 Disease of blood and blood-forming organs, unspecified; K21.9 Gastro-esophageal reflux disease without esophagitis; K74.60 Unspecified cirrhosis of liver; K59.00 Constipation, unspecified; Z68.37 Body mass index [BMI] 37.0-37.9, adult; Z88.8 Allergy status to other drugs, medicaments and biological substances; Z87.440 Personal history of urinary (tract) infections
CPT/HCPCS: 10022; 36415; 51702; 70450; 71045; 74150; 74176; 76705; 77012; 80053; 80074; 80076; 80164; 80329; 81001; 82140; 82150; 82390; 82728; 83516; 83605; 83690; 83986; 84443; 84484; 84702; 85007; 85025; 85027; 85610; 85730; 86225; 86235; 87040; 87081; 87086; 87205; 89051; 93005; 96365; 96375; 97110; 97116; 97163; 97530; J2250

== ENCOUNTER 2017-10-12 19:32 | Inpatient (IN) | payer MEDICARE, MEDICAID ==
[~2017-10-12] VITALS: Ht 172.7 cm; Wt 110.5 kg
[~2017-10-12 19:32] MED LIST: CHOL1TAB PO; CITA-77; DIVA250T6; FERR-20 PO; FLU01T PO; FOLI1TAB6 PO; LACT10SO3 PO; LEVE500T22 PO; LEVO125T7; LURA80TA; PANT40TA2 PO; PREN27TA PO; TOPI25CA5 PO; TRAZ100T2
[2017-10-12] MEDS ORDERED: LORazepam 2MG/ML-1ML VIAL ONE (19:47)
[2017-10-12] MEDS ORDERED: LORazepam 2MG/ML-1ML VIAL IV ONE (20:15)
[2017-10-12 21:15] LABS: Alanine Aminotransferase 50 U/L (13-56); Albumin 1.9 g/dL (3.4-5.0); Anion Gap 13 (5-15); Aspartate Aminotransferase 45 U/L (15-37); BUN/Creatinine Ratio 9.6; Blood Alcohol < 3.0 mg/dL (0-5); Blood Urea Nitrogen 19 mg/dL (7-18); Calcium 8.2 mg/dL (8.5-10.1); Carbon Dioxide 19 mmol/L (21-32); Chloride 106 mmol/L (98-107); GFR African American 34 mL/min; GFR Non-African American 28 mL/min; Glucose 102 mg/dL (74-106); Hematocrit 38.7 % (36.0-46.0); Magnesium 1.6 mg/dL (1.6-2.6); Mean Corpuscular Hemoglobin 36.7 pg (28.0-32.0); Mean Corpuscular Hgb Conc. 33.6 g/dL (32.0-36.0); Mean Corpuscular Volume 109.4 fL (80.0-100.0); Potassium 3.6 mmol/L (3.5-5.1); Red Blood Cells 3.54 10^6/uL (4.0-5.20); Red Cell Distribution Width 15.3 % (11.8-14.3); Sodium 138 mmol/L (136-145)
[2017-10-12 21:17] LABS: INR 1.18 (0.9-1.15); Partial Thromboplastin Time 27.5 sec (23.78-33.04); Prothrombin Time 12.5 sec (9.27-12.13)
[2017-10-12 21:18] LABS: Alkaline Phosphatase 78 U/L (45-117); Bilirubin, Total 2.2 mg/dL (0.2-1.0); Total Protein 4.6 g/dL (6.4-8.2)
[2017-10-12 21:21] LABS: Phenytoin (Dilantin) < 0.4 ug/mL (10-20); Valproic Acid (Depakene) 63 ug/mL (50-100)
[2017-10-12 21:29] LABS: Platelet Count (auto) 4 10^3/uL (140-450)
[2017-10-12 21:30] LABS: Basophils % (manual) 0 (0.0-2.0); Blast Cells 0; Eosinophils % (manual) 0 (0-7); Promyelocytes % 0; Reactive Lymphocytes 0
[2017-10-12 22:02] LABS: Band Neutrophils % (manual) 9; Lymphocytes % (manual) 17 (10.0-50.0); Metamyelocytes % 4; Monocytes % (manual) 10 (0-12); Myelocytes % 1
[2017-10-12] MEDS ORDERED: SODIUM CHLORIDE 0.9% 1,000 ML IV SCH (22:33)
[2017-10-12] MEDS ORDERED: ACETAMINOPHEN 325 MG TAB PO PRN (22:45)
[2017-10-12] MEDS ORDERED: ONDANSETRON HCL 4 MG/2 ML VIAL IV PRN (22:45)
[2017-10-12] MEDS ORDERED: SODIUM CHLORIDE 0.9% 1,000 ML IV ONE (22:45)
[2017-10-13] VITALS (87 sets, daily range): BP systolic 44–155; BP diastolic 23–114
[2017-10-13] MEDS: NOREPINEPHRINE 8 MG/250ML KIT 250 ML IV SCH ×4 (00:30→21:30)
[2017-10-13] MEDS ORDERED: NOREPINEPHRINE 8 MG/250ML KIT 250 ML IV ONE (00:32)
[2017-10-13 00:40] LABS: Lactic Acid w/Reflex 10.9 mmol/L (0.4-2.0)
[2017-10-13] MEDS ORDERED: SODIUM CHLORIDE 0.9% 1,000 ML IV ONE ×4 (01:00→15:30)
[2017-10-13] MEDS ORDERED: ALBUMIN 5% 250 ML IV ONE ×3 (01:23→05:45)
[2017-10-13] MEDS ORDERED: LORazepam 2MG/ML-1ML VIAL ONE (01:25)
[2017-10-13] MEDS ORDERED: LORazepam 2MG/ML-1ML VIAL IV PRN (02:00)
[2017-10-13] MEDS ORDERED: VANCOMYCIN PER PHARMACY 0 MG IV SCH (02:30)
[2017-10-13] MEDS ORDERED: VANCOMYCIN 1GM/250ML 250 ML IV ONE ×2 (02:45→03:00)
[2017-10-13] MEDS ORDERED: ETOMIDATE (2MG/ML) 20ML VIAL IV ONE ×3 (03:29→03:45)
[2017-10-13] MEDS ORDERED: SUCCINYLCHOLINE CHLORIDE 20 MG/ML 10ML VIAL IV ONE ×2 (03:29→03:45)
[2017-10-13] MEDS ORDERED: PIPERACILLIN-TAZOB 2.25GM 50 ML IV ONE (03:30)
[2017-10-13] MEDS ORDERED: VASOPRESSIN 20 UNIT/ML ONE ×3 (03:41→03:51)
[2017-10-13] MEDS ORDERED: MIDAZOLAM DRIP 50 mg/50mL 50 ML IV ONE ×2 (03:51→07:01)
[2017-10-13 03:55] LABS: Hemoglobin 9.6 g/dL (12.2-16.2); Mean Corpuscular Hemoglobin 37.7 pg (28.0-32.0); Red Blood Cells 2.54 10^6/uL (4.0-5.20)
[2017-10-13 03:57] LABS: Hematocrit 30.2 % (36.0-46.0); Mean Corpuscular Hgb Conc. 31.7 g/dL (32.0-36.0); Mean Corpuscular Volume 118.9 fL (80.0-100.0); Platelet Count (auto) 28 10^3/uL (140-450); Red Cell Distribution Width 17.2 % (11.8-14.3); White Blood Cell 6.9 10^3/uL (4.4-10.8)
[2017-10-13] MEDS: MIDAZOLAM DRIP 50 mg/50mL 50 ML IV SCH ×3 (04:00→20:15)
[2017-10-13] MEDS: VASOPRESSIN 50 UNITS in D5W 5% 247.5 ML IV SCH ×2 (04:00→06:15)
[2017-10-13 04:16] LABS: INR 1.27 (0.9-1.15); Partial Thromboplastin Time 34.3 sec (23.78-33.04); Prothrombin Time 13.4 sec (9.27-12.13)
[2017-10-13 04:17] LABS: Albumin 1.4 g/dL (3.4-5.0); BUN/Creatinine Ratio 9.1; Bilirubin, Total 1.5 mg/dL (0.2-1.0); Calcium 7.5 mg/dL (8.5-10.1); Magnesium 1.8 mg/dL (1.6-2.6); Phosphorus 4.4 mg/dL (2.5-4.90); Potassium 3.5 mmol/L (3.5-5.1); Total Protein 3.8 g/dL (6.4-8.2)
[2017-10-13 04:40] LABS: Basophils % (manual) 0 (0.0-2.0); Blast Cells 0; Eosinophils % (manual) 0 (0-7); Promyelocytes % 0; Reactive Lymphocytes 0
[2017-10-13] MEDS ORDERED: PHENYLEPHRINE IV 250 ML IV ONE ×4 (04:55→10:29)
[2017-10-13] MEDS ORDERED: SODIUM BICARBONATE 8.4% INJ 50ML SYRINGE ONE ×2 (04:58→05:44)
[2017-10-13] MEDS: fentaNYL Drip 2500mCg/250mlNS 250 ML IV SCH (05:00)
[2017-10-13] MEDS: PHENYLEPHRINE INJ 20 MG in SODIUM CHL 0.9% 250 ML IV SCH ×2 (05:00→07:30)
[2017-10-13] MEDS ORDERED: SODIUM BICARBONATE 8.4 % INJ 50ML VIAL IV ONE ×3 (05:00→12:42)
[2017-10-13] MEDS ORDERED: fentaNYL Drip 2500mCg/250mlNS 250 ML IV ONE (05:02)
[2017-10-13] MEDS: EPINEPHrine HCL 250 ML IV SCH ×2 (05:30→13:45)
[2017-10-13] MEDS ORDERED: EPINEPHrine HCL 250 ML IV ONE (05:33)
[2017-10-13] MEDS ORDERED: SODIUM BICARBONATE 50ML VIAL 50 ML in SOD CHL 0.45% 1,000 ML IV SCH (05:45)
[2017-10-13] MEDS ORDERED: LEVOTHYROXINE PO SCH ×2 (07:00)
[2017-10-13] MEDS ORDERED: LEVOTHYROXINE SODIUM 50 MCG TAB PO SCH ×2 (07:00→08:00)
[2017-10-13] MEDS ORDERED: PANTOPRAZOLE 40 MG TAB PO SCH (07:30)
[2017-10-13 07:52] LABS: Alcohol, Urine < 3.0 mg/dL (0-5); Amphetamine Screen, Urine NEGATIVE (NEGATIVE); Barbiturate Scree,Urine NEGATIVE (NEGATIVE); Benzodiazephine Screen, Urine POSITIVE (NEGATIVE); Cannabinoid Screen, Urine NEGATIVE (NEGATIVE); Cocaine Screen, Urine NEGATIVE (NEGATIVE); Opiate Scree,Urine NEGATIVE (NEGATIVE); Phencyclidine Screen, Urine NEGATIVE (NEGATIVE)
[2017-10-13 08:01] LABS: Urine Bacteria FEW /hpf (None Seen); Urine Blood 3+ /uL (Negative); Urine Mucus FEW (None Seen); Urine Specific Gravity 1.009 (1.001-1.035); Urine WBC 142 /hpf (0 - 5)
[2017-10-13 09:33] LABS: Metamyelocytes % 7; Monocytes % (manual) 8 (0-12); Myelocytes % 3
[2017-10-13 09:38] LABS: Band Neutrophils % (manual) 24; Lymphocytes % (manual) 10 (10.0-50.0)
[2017-10-13 09:53] LABS: Hemoglobin 8.9 g/dL (12.2-16.2)
[2017-10-13 09:57] LABS: Hematocrit 26.4 % (36.0-46.0); Mean Corpuscular Hemoglobin 37.5 pg (28.0-32.0); Mean Corpuscular Hgb Conc. 33.6 g/dL (32.0-36.0); Mean Corpuscular Volume 111.5 fL (80.0-100.0); Red Blood Cells 2.37 10^6/uL (4.0-5.20); Red Cell Distribution Width 15.9 % (11.8-14.3)
[2017-10-13] MEDS ORDERED: LEVETIRACETAM 500 MG TAB PO SCH (10:00)
[2017-10-13] MEDS ORDERED: LATUDA 80 MG PO SCH (10:00)
[2017-10-13] MEDS ORDERED: ENOXAPARIN SOD 40 MG/0.4 ML SYRINGE SC SCH (10:00)
[2017-10-13] MEDS ORDERED: TOPIRAMATE 25 MG TAB PO SCH (10:00)
[2017-10-13 10:08] LABS: Platelet Count (auto) 18 10^3/uL (140-450)
[2017-10-13 10:09] LABS: Basophils % (manual) 0 (0.0-2.0); Blast Cells 0; Promyelocytes % 0; Reactive Lymphocytes 0
[2017-10-13 10:14] LABS: INR 1.4 (0.9-1.15); Prothrombin Time 14.7 sec (9.27-12.13)
[2017-10-13 10:19] LABS: Calcium 7.2 mg/dL (8.5-10.1); Potassium 3.3 mmol/L (3.5-5.1)
[2017-10-13 10:21] LABS: BUN/Creatinine Ratio 10.5
[2017-10-13 10:24] LABS: Bilirubin, Total 1.9 mg/dL (0.2-1.0); Total Protein 4.2 g/dL (6.4-8.2)
[2017-10-13 10:43] LABS: Partial Thromboplastin Time 72.5 sec (23.78-33.04)
[2017-10-13] MEDS ORDERED: PHENYLEPHRINE INJ 40 MG in D5W 5% 250 ML IV SCH (10:45)
[2017-10-13] MEDS ORDERED: PHENYLEPHRINE INJ 40 MG in SODIUM CHL 0.9% 250 ML IV SCH (10:52)
[2017-10-13] MEDS ORDERED: SODIUM BICARBONATE 50ML VIAL 150 ML in SOD CHL 0.45% 1,000 ML IV SCH (11:15)
[2017-10-13] MEDS ORDERED: PIPERACILLIN-TAZOB 2.25GM 50 ML IV SCH (12:00)
[2017-10-13] MEDS ORDERED: HYDROCORTISONE SOD SUCC 100 MG/2ML INJ VIAL ONE (12:06)
[2017-10-13] MEDS ORDERED: HYDROCORTISONE SOD SUCC 100 MG/2ML INJ VIAL IV ONE (12:15)
[2017-10-13] MEDS ORDERED: MICAFUNGIN SODIUM 100 MG in SODIUM CHL 0.9% 100 ML IV ONE (12:15)
[2017-10-13] MEDS ORDERED: ALBUMIN 25% 50 ML IV ONE (12:15)
[2017-10-13] MEDS: ALBUMIN 25% 50 ML IV SCH ×2 (12:53→20:13)
[2017-10-13] MEDS: SODIUM BICARBONATE 50ML VIAL 150 ML in D5W 5% 1,000 ML IV SCH (12:53)
[2017-10-13] MEDS: PHENYLEPHRINE INJ 40 MG in SODIUM CHL 0.9% 250 ML IV SCH ×2 (13:15→20:41)
[2017-10-13] MEDS: MEROPENEM 1gm/20ml IVPUSH 20 ML IV SCH (14:16)
[2017-10-13 14:29] LABS: Band Neutrophils % (manual) 25; Eosinophils % (manual) 2 (0-7); Lymphocytes % (manual) 17 (10.0-50.0); Monocytes % (manual) 10 (0-12)
[2017-10-13 14:33] LABS: Metamyelocytes % 6; Myelocytes % 3
[2017-10-13 17:20] LABS: Hemoglobin 9.4 g/dL (12.2-16.2)
[2017-10-13 17:22] LABS: Hematocrit 26.9 % (36.0-46.0); Mean Corpuscular Hemoglobin 38.2 pg (28.0-32.0); Mean Corpuscular Hgb Conc. 34.8 g/dL (32.0-36.0); Mean Corpuscular Volume 109.8 fL (80.0-100.0); Red Blood Cells 2.45 10^6/uL (4.0-5.20); Red Cell Distribution Width 15.8 % (11.8-14.3)
[2017-10-13 17:32] LABS: Platelet Count (auto) 14 10^3/uL (140-450)
[2017-10-13 17:33] LABS: Basophils % (manual) 0 (0.0-2.0); Blast Cells 0; Promyelocytes % 0; Reactive Lymphocytes 0
[2017-10-13 18:26] LABS: Band Neutrophils % (manual) 24; Eosinophils % (manual) 1 (0-7); Lymphocytes % (manual) 12 (10.0-50.0); Metamyelocytes % 10; Monocytes % (manual) 13 (0-12); Myelocytes % 7
[2017-10-13 18:31] LABS: BUN/Creatinine Ratio 11.9; Calcium 6.7 mg/dL (8.5-10.1); Potassium 3.4 mmol/L (3.5-5.1)
[2017-10-13 18:35] LABS: Protein, Urine 44.2 mg/dL (0.0-11.9)
[2017-10-13] MEDS: HYDROCORTISONE SOD SUCC 100 MG/2ML INJ VIAL IV SCH (21:40)
[2017-10-14] VITALS (106 sets, daily range): BP systolic 83–130; BP diastolic 29–66
[2017-10-14] MEDS: SODIUM BICARBONATE 50ML VIAL 150 ML in D5W 5% 1,000 ML IV SCH ×3 (00:23→22:56)
[2017-10-14] MEDS: PHENYLEPHRINE INJ 40 MG in SODIUM CHL 0.9% 250 ML IV SCH ×5 (00:26→20:30)
[2017-10-14] MEDS ORDERED: LEVOFLOXACIN 500MG 100 ML IV ONE (01:30)
[2017-10-14] MEDS: MEROPENEM 1gm/20ml IVPUSH 20 ML IV SCH ×2 (01:37→13:42)
[2017-10-14] MEDS: NOREPINEPHRINE 8 MG/250ML KIT 250 ML IV SCH ×5 (01:47→20:00)
[2017-10-14] MEDS: EPINEPHrine HCL 250 ML IV SCH (03:56)
[2017-10-14] MEDS: VASOPRESSIN 50 UNITS in D5W 5% 247.5 ML IV SCH ×2 (03:56→15:24)
[2017-10-14] MEDS: ALBUMIN 25% 50 ML IV SCH (03:58)
[2017-10-14 04:27] LABS: Hemoglobin 9.2 g/dL (12.2-16.2); Mean Corpuscular Hgb Conc. 35.2 g/dL (32.0-36.0); White Blood Cell 10.7 10^3/uL (4.4-10.8)
[2017-10-14 04:32] LABS: Hematocrit 26.1 % (36.0-46.0); Mean Corpuscular Hemoglobin 38.2 pg (28.0-32.0); Mean Corpuscular Volume 108.5 fL (80.0-100.0); Platelet Count (auto) 23 10^3/uL (140-450); Red Cell Distribution Width 15.7 % (11.8-14.3)
[2017-10-14 04:42] LABS: INR 1.55 (0.9-1.15); Partial Thromboplastin Time 50.2 sec (23.78-33.04); Prothrombin Time 16.2 sec (9.27-12.13)
[2017-10-14 04:51] LABS: Basophils % (manual) 0 (0.0-2.0); Blast Cells 0; Eosinophils % (manual) 0 (0-7); Promyelocytes % 0; Reactive Lymphocytes 0
[2017-10-14 04:59] LABS: Albumin 2.4 g/dL (3.4-5.0); BUN/Creatinine Ratio 14.9; Bilirubin, Total 2.8 mg/dL (0.2-1.0); Calcium 6.5 mg/dL (8.5-10.1); Phosphorus 5.7 mg/dL (2.5-4.90); Potassium 3.6 mmol/L (3.5-5.1); Total Protein 4.6 g/dL (6.4-8.2)
[2017-10-14] MEDS: HYDROCORTISONE SOD SUCC 100 MG/2ML INJ VIAL IV SCH ×3 (05:43→21:30)
[2017-10-14] MEDS ORDERED: LEVOFLOXACIN 250MG 50 ML IV SCH (06:00)
[2017-10-14] MEDS: fentaNYL Drip 2500mCg/250mlNS 250 ML IV SCH ×2 (07:45→21:31)
[2017-10-14] MEDS ORDERED: VANCOMYCIN 1GM/250ML 250 ML IV SCH (09:00)
[2017-10-14 09:07] LABS: Monocytes % (manual) 7 (0-12)
[2017-10-14 09:08] LABS: Metamyelocytes % 5; Myelocytes % 4
[2017-10-14 09:12] LABS: Band Neutrophils % (manual) 48; Lymphocytes % (manual) 5 (10.0-50.0)
[2017-10-14] MEDS: PANTOPRAZOLE 40 MG/10 ML VIAL IV SCH (09:36)
[2017-10-14] MEDS: MICAFUNGIN SODIUM 100 MG in SODIUM CHL 0.9% 100 ML IV SCH (09:37)
[2017-10-14] MEDS ORDERED: SODIUM CHLORIDE 0.9% 1,000 ML IV ONE (10:00)
[2017-10-14] MEDS ORDERED: FUROSEMIDE 40 MG/4 ML VIAL IV ONE (15:15)
[2017-10-14] MEDS ORDERED: LORazepam 2MG/ML-1ML VIAL IV PRN (16:00)
[2017-10-14 21:54] LABS: Lactic Acid w/Reflex 2.6 mmol/L (0.4-2.0)
[2017-10-14] MEDS ORDERED: LEVETIRACETAM INJ 500 MG in D5W 5% 100 ML IV SCH (22:00)
[2017-10-15] VITALS (108 sets, daily range): BP systolic 0–151; BP diastolic 0–83
[2017-10-15] MEDS: NOREPINEPHRINE 8 MG/250ML KIT 250 ML IV SCH ×3 (01:20→19:55)
[2017-10-15] MEDS: MEROPENEM 1gm/20ml IVPUSH 20 ML IV SCH ×3 (01:44→19:20)
[2017-10-15] MEDS: PHENYLEPHRINE INJ 40 MG in SODIUM CHL 0.9% 250 ML IV SCH (01:44)
[2017-10-15] MEDS: VASOPRESSIN 50 UNITS in D5W 5% 247.5 ML IV SCH ×2 (03:53→19:55)
[2017-10-15 04:00] LABS: Basophils # (auto) 0 uL; Hemoglobin 8.9 g/dL (12.2-16.2); Lymphocytes # (auto) 0.3 uL; Monocytes # (auto) 1.1 uL; Monocytes % (auto) 6.2 % (0.0-12.0); Nucleated Red Blood Cells % 0.1 %
[2017-10-15 04:01] LABS: Eosinophils # (auto) 0.3 uL; Eosinophils % (auto) 1.7 % (0.0-7.0); Hematocrit 25.8 % (36.0-46.0); Lymphocytes % (auto) 1.8 % (10.0-50.0); Mean Corpuscular Hemoglobin 37.1 pg (28.0-32.0); Mean Corpuscular Hgb Conc. 34.5 g/dL (32.0-36.0); Mean Corpuscular Volume 107.6 fL (80.0-100.0); Neutrophils # (auto) 15.3 uL; Neutrophils % (auto) 90.3 % (37.0-80.0); Red Cell Distribution Width 15.6 % (11.8-14.3)
[2017-10-15 04:10] LABS: Platelet Count (auto) 16 10^3/uL (140-450)
[2017-10-15 04:13] LABS: INR 1.41 (0.9-1.15); Prothrombin Time 14.8 sec (9.27-12.13)
[2017-10-15 04:18] LABS: Albumin 2.1 g/dL (3.4-5.0); Calcium 6.1 mg/dL (8.5-10.1); Potassium 3.8 mmol/L (3.5-5.1)
[2017-10-15 04:20] LABS: BUN/Creatinine Ratio 20.7
[2017-10-15 04:23] LABS: Bilirubin, Total 4.1 mg/dL (0.2-1.0); Total Protein 4.3 g/dL (6.4-8.2)
[2017-10-15] MEDS: ALBUTEROL SULF 2.5 MG/0.5ML(0.5%) NEB SOLN NEB SCH ×6 (04:54→22:19)
[2017-10-15] MEDS: EPINEPHrine HCL 250 ML IV SCH (05:34)
[2017-10-15] MEDS: HYDROCORTISONE SOD SUCC 100 MG/2ML INJ VIAL IV SCH ×2 (06:27→21:43)
[2017-10-15] MEDS: MIDAZOLAM DRIP 50 mg/50mL 50 ML IV SCH (06:59)
[2017-10-15] MEDS: VANCOMYCIN 1GM/250ML 250 ML IV SCH ×2 (09:10→20:47)
[2017-10-15] MEDS: MICAFUNGIN SODIUM 100 MG in SODIUM CHL 0.9% 100 ML IV SCH (10:00)
[2017-10-15] MEDS: SODIUM BICARBONATE 50ML VIAL 150 ML in D5W 5% 1,000 ML IV SCH (10:36)
[2017-10-15] MEDS: LEVETIRACETAM INJ 750 MG in D5W 5% 100 ML IV SCH ×2 (11:00→22:30)
[2017-10-15] MEDS: PANTOPRAZOLE 40 MG/10 ML VIAL IV SCH (11:30)
[2017-10-15] MEDS ORDERED: Jevity 1.2 Cal/Fiber 1 Liter GT SCH (15:15)
[2017-10-15] MEDS: METOCLOPRAMIDE HCL 5MG/ml INJ 2ml VIAL IV SCH ×2 (16:19→21:43)
[2017-10-15] MEDS ORDERED: FUROSEMIDE 40 MG/4 ML VIAL ONE (21:12)
[2017-10-15] MEDS ORDERED: FUROSEMIDE 40 MG/4 ML VIAL IV ONE (21:15)
[2017-10-15] MEDS ORDERED: SODIUM BICARBONATE 50ML VIAL 150 ML in D5W 5% 1,000 ML IV SCH (21:30)
[2017-10-16] VITALS (102 sets, daily range): BP systolic 64–282; BP diastolic 36–80
[2017-10-16] MEDS: MEROPENEM 1gm/20ml IVPUSH 20 ML IV SCH ×3 (01:37→18:00)
[2017-10-16] MEDS: ALBUTEROL SULF 2.5 MG/0.5ML(0.5%) NEB SOLN NEB SCH ×7 (02:14→22:25)
[2017-10-16 04:04] LABS: Hematocrit 27.1 % (36.0-46.0); Hemoglobin 9.5 g/dL (12.2-16.2); Mean Corpuscular Hemoglobin 37.4 pg (28.0-32.0); Mean Corpuscular Hgb Conc. 35.2 g/dL (32.0-36.0); Mean Corpuscular Volume 106.4 fL (80.0-100.0); Red Blood Cells 2.55 10^6/uL (4.0-5.20); Red Cell Distribution Width 15.9 % (11.8-14.3); White Blood Cell 23.2 10^3/uL (4.4-10.8)
[2017-10-16 04:14] LABS: BUN/Creatinine Ratio 27.6; Calcium 6.1 mg/dL (8.5-10.1); Potassium 3.3 mmol/L (3.5-5.1)
[2017-10-16 04:15] LABS: Bilirubin, Total 7.4 mg/dL (0.2-1.0); Platelet Count (auto) 9 10^3/uL (140-450); Total Protein 4.2 g/dL (6.4-8.2)
[2017-10-16 04:17] LABS: Basophils % (manual) 0 (0.0-2.0); Blast Cells 0; Eosinophils % (manual) 0 (0-7); Metamyelocytes % 0; Myelocytes % 0; Promyelocytes % 0; Reactive Lymphocytes 0
[2017-10-16 04:42] LABS: Band Neutrophils % (manual) 17; Lymphocytes % (manual) 2 (10.0-50.0); Monocytes % (manual) 14 (0-12)
[2017-10-16] MEDS: fentaNYL Drip 2500mCg/250mlNS 250 ML IV SCH ×2 (04:55→17:52)
[2017-10-16] MEDS: EPINEPHrine HCL 250 ML IV SCH (05:00)
[2017-10-16] MEDS: PHENYLEPHRINE INJ 40 MG in SODIUM CHL 0.9% 250 ML IV SCH ×2 (05:01→22:20)
[2017-10-16] MEDS ORDERED: POTASSIUM CHL 20MEQ/100ML 100 ML IV ONE (05:31)
[2017-10-16] MEDS: METOCLOPRAMIDE HCL 5MG/ml INJ 2ml VIAL IV SCH ×3 (05:33→22:16)
[2017-10-16] MEDS: HYDROCORTISONE SOD SUCC 100 MG/2ML INJ VIAL IV SCH ×3 (05:33→22:15)
[2017-10-16] MEDS: POTASSIUM CHL 20MEQ/100ML 100 ML IV SCH ×2 (05:40→06:40)
[2017-10-16] MEDS: NOREPINEPHRINE 8 MG/250ML KIT 250 ML IV SCH ×2 (05:42→17:52)
[2017-10-16] MEDS: MIDAZOLAM DRIP 50 mg/50mL 50 ML IV SCH (06:59)
[2017-10-16 10:18] LABS: Folate (Folic Acid) 14.06 ng/mL (5.38-24)
[2017-10-16] MEDS: VANCOMYCIN 1GM/250ML 250 ML IV SCH ×2 (10:22→21:12)
[2017-10-16] MEDS: PANTOPRAZOLE 40 MG/10 ML VIAL IV SCH (10:29)
[2017-10-16] MEDS: LEVETIRACETAM INJ 750 MG in D5W 5% 100 ML IV SCH ×2 (11:00→21:55)
[2017-10-16] MEDS ORDERED: FUROSEMIDE 20 MG/2 ML VIAL IV ONE (12:45)
[2017-10-16] MEDS ORDERED: TPN PER PHARMACY 0 ML IV SCH (12:45)
[2017-10-16 13:04] LABS: Magnesium 1.1 mg/dL (1.6-2.6); Phosphorus 4.4 mg/dL (2.5-4.90)
[2017-10-16 13:21] LABS: Pre Albumin 4.1 mg/dL (20.0-40.0)
[2017-10-16] MEDS ORDERED: CALCIUM GLUC 4.65meq/50ml D5AE 50 ML IV ONE (13:45)
[2017-10-16] MEDS: MAGNESIUM SULFATE 1GM/100ML 100 ML IV SCH ×4 (15:00→22:16)
[2017-10-16] MEDS: ACCU-CHEK COMFORT CURVE STRIP VI SCH (18:00)
[2017-10-16] MEDS: InsuLIN REG 1unit/0.01ml Soln (100units/ml) SC SCH (18:00)
[2017-10-16] MEDS ORDERED: DEXTROSE (50%) 50ML SYRG IV SCH (18:00)
[2017-10-16] MEDS ORDERED: TPN PER PHARMACY IV NR ×8 (20:00)
[2017-10-16] MEDS ORDERED: MAGNESIUM SULFATE 1GM/100ML 100 ML IV ONE (21:57)
[2017-10-17] VITALS (96 sets, daily range): BP systolic 74–143; BP diastolic 35–78
[2017-10-17] MEDS: NOREPINEPHRINE 8 MG/250ML KIT 250 ML IV SCH ×3 (00:40→23:45)
[2017-10-17] MEDS: MEROPENEM 1gm/20ml IVPUSH 20 ML IV SCH ×3 (02:00→18:15)
[2017-10-17] MEDS: ALBUTEROL SULF 2.5 MG/0.5ML(0.5%) NEB SOLN NEB SCH ×6 (02:09→22:47)
[2017-10-17 03:45] LABS: Hemoglobin 9.8 g/dL (12.2-16.2); Mean Corpuscular Hemoglobin 37.2 pg (28.0-32.0); Mean Corpuscular Hgb Conc. 35.2 g/dL (32.0-36.0); Mean Corpuscular Volume 105.9 fL (80.0-100.0); Red Blood Cells 2.64 10^6/uL (4.0-5.20); Red Cell Distribution Width 15.6 % (11.8-14.3); White Blood Cell 20.5 10^3/uL (4.4-10.8)
[2017-10-17 04:01] LABS: Albumin 1.9 g/dL (3.4-5.0); BUN/Creatinine Ratio 31.8; Bilirubin, Total 13.2 mg/dL (0.2-1.0); Calcium 7.1 mg/dL (8.5-10.1); Magnesium 2.3 mg/dL (1.6-2.6); Phosphorus 3.2 mg/dL (2.5-4.90); Potassium 3.7 mmol/L (3.5-5.1); Total Protein 4.1 g/dL (6.4-8.2)
[2017-10-17 04:13] LABS: Platelet Count (auto) 13 10^3/uL (140-450)
[2017-10-17 04:15] LABS: Basophils % (manual) 0 (0.0-2.0); Blast Cells 0; Eosinophils % (manual) 0 (0-7); Metamyelocytes % 0; Myelocytes % 0; Promyelocytes % 0; Reactive Lymphocytes 0
[2017-10-17 05:10] LABS: Band Neutrophils % (manual) 16; Lymphocytes % (manual) 4 (10.0-50.0); Monocytes % (manual) 10 (0-12)
[2017-10-17] MEDS: InsuLIN REG 1unit/0.01ml Soln (100units/ml) SC SCH ×5 (05:34→23:52)
[2017-10-17] MEDS: EPINEPHrine HCL 250 ML IV SCH (05:34)
[2017-10-17] MEDS: VASOPRESSIN 50 UNITS in D5W 5% 247.5 ML IV SCH (05:37)
[2017-10-17] MEDS: METOCLOPRAMIDE HCL 5MG/ml INJ 2ml VIAL IV SCH ×2 (05:37→14:21)
[2017-10-17] MEDS: HYDROCORTISONE SOD SUCC 100 MG/2ML INJ VIAL IV SCH ×3 (05:37→22:00)
[2017-10-17] MEDS: ACCU-CHEK COMFORT CURVE STRIP VI SCH ×5 (05:37→23:52)
[2017-10-17] MEDS: MIDAZOLAM DRIP 50 mg/50mL 50 ML IV SCH (05:38)
[2017-10-17] MEDS: VANCOMYCIN 1GM/250ML 250 ML IV SCH ×2 (09:10→21:00)
[2017-10-17] MEDS: LEVETIRACETAM INJ 750 MG in D5W 5% 100 ML IV SCH (09:39)
[2017-10-17] MEDS: PANTOPRAZOLE 40 MG/10 ML VIAL IV SCH (09:50)
[2017-10-17] MEDS ORDERED: FUROSEMIDE 40 MG/4 ML VIAL IV ONE (15:00)
[2017-10-17] MEDS ORDERED: TPN PER PHARMACY IV NR ×9 (20:00)
[2017-10-18] VITALS (80 sets, daily range): BP systolic 95–150; BP diastolic 55–92
[2017-10-18] MEDS: MEROPENEM 1gm/20ml IVPUSH 20 ML IV SCH ×3 (02:00→18:39)
[2017-10-18] MEDS: ALBUTEROL SULF 2.5 MG/0.5ML(0.5%) NEB SOLN NEB SCH ×6 (02:26→22:11)
[2017-10-18 04:16] LABS: Hematocrit 31.1 % (36.0-46.0); Hemoglobin 10.8 g/dL (12.2-16.2); Mean Corpuscular Hemoglobin 36.8 pg (28.0-32.0); Mean Corpuscular Hgb Conc. 34.6 g/dL (32.0-36.0); Mean Corpuscular Volume 106.3 fL (80.0-100.0); Red Blood Cells 2.93 10^6/uL (4.0-5.20); Red Cell Distribution Width 15.9 % (11.8-14.3); White Blood Cell 18.8 10^3/uL (4.4-10.8)
[2017-10-18] MEDS: fentaNYL Drip 2500mCg/250mlNS 250 ML IV SCH (04:21)
[2017-10-18 04:31] LABS: Platelet Count (auto) 14 10^3/uL (140-450)
[2017-10-18 04:33] LABS: Basophils % (manual) 0 (0.0-2.0); Blast Cells 0; Eosinophils % (manual) 0 (0-7); Myelocytes % 0; Promyelocytes % 0; Reactive Lymphocytes 0
[2017-10-18 04:34] LABS: Albumin 1.7 g/dL (3.4-5.0); BUN/Creatinine Ratio 39.4; Bilirubin, Total 17.2 mg/dL (0.2-1.0); Calcium 7.9 mg/dL (8.5-10.1); Magnesium 2.4 mg/dL (1.6-2.6); Phosphorus 2.8 mg/dL (2.5-4.90); Potassium 4.5 mmol/L (3.5-5.1)
[2017-10-18] MEDS: InsuLIN REG 1unit/0.01ml Soln (100units/ml) SC SCH ×3 (05:29→18:45)
[2017-10-18] MEDS: ACCU-CHEK COMFORT CURVE STRIP VI SCH ×3 (05:29→18:00)
[2017-10-18 05:36] LABS: Band Neutrophils % (manual) 10; Lymphocytes % (manual) 6 (10.0-50.0); Metamyelocytes % 3; Monocytes % (manual) 12 (0-12)
[2017-10-18] MEDS: VANCOMYCIN 1GM/250ML 250 ML IV SCH (10:03)
[2017-10-18] MEDS: PANTOPRAZOLE 40 MG/10 ML VIAL IV SCH (10:40)
[2017-10-18] MEDS: HYDROCORTISONE SOD SUCC 100 MG/2ML INJ VIAL IV SCH ×2 (10:40→21:44)
[2017-10-18] MEDS: FUROSEMIDE 40 MG/4 ML VIAL IV SCH ×2 (10:40→11:04)
[2017-10-18] MEDS: EPINEPHrine HCL 250 ML IV SCH (10:46)
[2017-10-18] MEDS: VASOPRESSIN 50 UNITS in D5W 5% 247.5 ML IV SCH (10:46)
[2017-10-18] MEDS: MIDAZOLAM DRIP 50 mg/50mL 50 ML IV SCH (10:47)
[2017-10-18] MEDS: NOREPINEPHRINE 8 MG/250ML KIT 250 ML IV SCH (12:50)
[2017-10-18] MEDS ORDERED: PHYTONADIONE (VIT K)10 MG/ML 1ML VIAL SUBCUT ONE (15:30)
[2017-10-18] MEDS: ALBUMIN 25% 50 ML IV SCH ×2 (17:28→23:52)
[2017-10-18] MEDS ORDERED: TPN PER PHARMACY IV NR ×9 (20:00)
[2017-10-19] VITALS (99 sets, daily range): BP systolic 96–254; BP diastolic 47–190
[2017-10-19] MEDS: MEROPENEM 1gm/20ml IVPUSH 20 ML IV SCH ×3 (02:00→18:08)
[2017-10-19] MEDS: ALBUTEROL SULF 2.5 MG/0.5ML(0.5%) NEB SOLN NEB SCH ×6 (02:13→22:28)
[2017-10-19 04:09] LABS: Basophils # (auto) 0 uL; Lymphocytes # (auto) 1.3 uL
[2017-10-19 04:11] LABS: Basophils % (auto) 0.2 % (0.0-2.0); Eosinophils # (auto) 0.1 uL; Eosinophils % (auto) 0.5 % (0.0-7.0); Hematocrit 28.7 % (36.0-46.0); Lymphocytes % (auto) 7.1 % (10.0-50.0); Mean Corpuscular Hemoglobin 37.3 pg (28.0-32.0); Mean Corpuscular Hgb Conc. 34.8 g/dL (32.0-36.0); Mean Corpuscular Volume 107.1 fL (80.0-100.0); Monocytes # (auto) 1.4 uL; Monocytes % (auto) 7.7 % (0.0-12.0); Neutrophils # (auto) 15.8 uL; Neutrophils % (auto) 84.5 % (37.0-80.0); Nucleated Red Blood Cells % 1.7 %; Red Blood Cells 2.68 10^6/uL (4.0-5.20); Red Cell Distribution Width 16.1 % (11.8-14.3); White Blood Cell 18.7 10^3/uL (4.4-10.8)
[2017-10-19 04:33] LABS: Albumin 2.2 g/dL (3.4-5.0); BUN/Creatinine Ratio 54.2; Bilirubin, Total 22.2 mg/dL (0.2-1.0); Calcium 8.3 mg/dL (8.5-10.1); Magnesium 2.4 mg/dL (1.6-2.6); Phosphorus 3.3 mg/dL (2.5-4.90); Potassium 4.8 mmol/L (3.5-5.1)
[2017-10-19 04:37] LABS: Platelet Count (auto) 16 10^3/uL (140-450)
[2017-10-19] MEDS: InsuLIN REG 1unit/0.01ml Soln (100units/ml) SC SCH ×3 (05:00→12:00)
[2017-10-19] MEDS: ACCU-CHEK COMFORT CURVE STRIP VI SCH ×3 (05:00→12:00)
[2017-10-19] MEDS: ALBUMIN 25% 50 ML IV SCH (06:32)
[2017-10-19] MEDS: NOREPINEPHRINE 8 MG/250ML KIT 250 ML IV SCH (06:34)
[2017-10-19] MEDS: MIDAZOLAM DRIP 50 mg/50mL 50 ML IV SCH ×2 (06:59→21:34)
[2017-10-19] MEDS: fentaNYL Drip 2500mCg/250mlNS 250 ML IV SCH (09:35)
[2017-10-19] MEDS: HYDROCORTISONE SOD SUCC 100 MG/2ML INJ VIAL IV SCH ×2 (09:35→22:23)
[2017-10-19] MEDS: PANTOPRAZOLE 40 MG/10 ML VIAL IV SCH (09:35)
[2017-10-19] MEDS: FUROSEMIDE 40 MG/4 ML VIAL IV SCH (09:35)
[2017-10-19] MEDS: IPRATROPIUM BROM 0.5 MG/2.5ML INH SOL NEB SCH ×2 (18:25→22:28)
[2017-10-19] MEDS ORDERED: TPN PER PHARMACY IV NR ×9 (20:00)
[2017-10-20] VITALS (105 sets, daily range): BP systolic 94–148; BP diastolic 47–79
[2017-10-20] MEDS: MEROPENEM 1gm/20ml IVPUSH 20 ML IV SCH ×3 (02:00→17:52)
[2017-10-20] MEDS: ALBUTEROL SULF 2.5 MG/0.5ML(0.5%) NEB SOLN NEB SCH ×6 (02:28→22:25)
[2017-10-20] MEDS: IPRATROPIUM BROM 0.5 MG/2.5ML INH SOL NEB SCH ×6 (02:28→22:25)
[2017-10-20] MEDS: fentaNYL Drip 2500mCg/250mlNS 250 ML IV SCH ×2 (02:52→14:03)
[2017-10-20 04:36] LABS: Hematocrit 29.2 % (36.0-46.0); Mean Corpuscular Hemoglobin 37.7 pg (28.0-32.0); Platelet Count (auto) 27 10^3/uL (140-450); Red Blood Cells 2.69 10^6/uL (4.0-5.20)
[2017-10-20 04:38] LABS: Hemoglobin 10.2 g/dL (12.2-16.2); Mean Corpuscular Hgb Conc. 34.8 g/dL (32.0-36.0); Mean Corpuscular Volume 108.5 fL (80.0-100.0); Red Cell Distribution Width 15.6 % (11.8-14.3); White Blood Cell 22.1 10^3/uL (4.4-10.8)
[2017-10-20] MEDS: MIDAZOLAM DRIP 50 mg/50mL 50 ML IV SCH (04:54)
[2017-10-20 05:15] LABS: Albumin 2.2 g/dL (3.4-5.0); BUN/Creatinine Ratio 57.8; Bilirubin, Total 26.5 mg/dL (0.2-1.0); Calcium 8.6 mg/dL (8.5-10.1)
[2017-10-20 05:16] LABS: Total Protein 3.9 g/dL (6.4-8.2)
[2017-10-20 06:22] LABS: Band Neutrophils % (manual) 4; Basophils % (manual) 0 (0.0-2.0); Blast Cells 0; Eosinophils % (manual) 0 (0-7); Lymphocytes % (manual) 4 (10.0-50.0); Metamyelocytes % 0; Monocytes % (manual) 7 (0-12); Myelocytes % 0; Promyelocytes % 0; Reactive Lymphocytes 0
[2017-10-20] MEDS: HYDROCORTISONE SOD SUCC 100 MG/2ML INJ VIAL IV SCH ×2 (09:29→22:16)
[2017-10-20] MEDS: PANTOPRAZOLE 40 MG/10 ML VIAL IV SCH (09:29)
[2017-10-20] MEDS: FUROSEMIDE 40 MG/4 ML VIAL IV SCH (09:29)
[2017-10-20] MEDS: NOREPINEPHRINE 8 MG/250ML KIT 250 ML IV SCH (09:47)
[2017-10-21] VITALS (137 sets, daily range): BP systolic 58–173; BP diastolic 23–107
[2017-10-21] MEDS: ALBUTEROL SULF 2.5 MG/0.5ML(0.5%) NEB SOLN NEB SCH ×6 (02:27→22:09)
[2017-10-21] MEDS: MEROPENEM 1gm/20ml IVPUSH 20 ML IV SCH ×3 (02:27→18:08)
[2017-10-21] MEDS: IPRATROPIUM BROM 0.5 MG/2.5ML INH SOL NEB SCH ×6 (02:27→22:09)
[2017-10-21] MEDS: NOREPINEPHRINE 8 MG/250ML KIT 250 ML IV SCH (02:30)
[2017-10-21] MEDS: fentaNYL Drip 2500mCg/250mlNS 250 ML IV SCH (03:00)
[2017-10-21] MEDS: MIDAZOLAM DRIP 50 mg/50mL 50 ML IV SCH ×3 (03:00→21:30)
[2017-10-21 03:48] LABS: Platelet Count (auto) 28 10^3/uL (140-450)
[2017-10-21 03:52] LABS: Hematocrit 28.4 % (36.0-46.0); Hemoglobin 9.8 g/dL (12.2-16.2); Mean Corpuscular Hemoglobin 37.7 pg (28.0-32.0); Mean Corpuscular Hgb Conc. 34.6 g/dL (32.0-36.0); Mean Corpuscular Volume 108.8 fL (80.0-100.0); Red Blood Cells 2.61 10^6/uL (4.0-5.20); Red Cell Distribution Width 15.9 % (11.8-14.3); White Blood Cell 20.2 10^3/uL (4.4-10.8)
[2017-10-21 04:04] LABS: Albumin 1.9 g/dL (3.4-5.0); Calcium 8.4 mg/dL (8.5-10.1); Potassium 4.8 mmol/L (3.5-5.1)
[2017-10-21 04:06] LABS: BUN/Creatinine Ratio 75.6
[2017-10-21 04:08] LABS: Basophils % (manual) 0 (0.0-2.0); Blast Cells 0; Eosinophils % (manual) 0 (0-7); Myelocytes % 0; Promyelocytes % 0; Reactive Lymphocytes 0
[2017-10-21 04:19] LABS: Total Protein 3.8 g/dL (6.4-8.2)
[2017-10-21 04:48] LABS: Band Neutrophils % (manual) 4; Lymphocytes % (manual) 5 (10.0-50.0); Metamyelocytes % 1; Monocytes % (manual) 3 (0-12)
[2017-10-21] MEDS: FUROSEMIDE 40 MG/4 ML VIAL IV SCH (10:20)
[2017-10-21] MEDS: PANTOPRAZOLE 40 MG/10 ML VIAL IV SCH (10:20)
[2017-10-21] MEDS: HYDROCORTISONE SOD SUCC 100 MG/2ML INJ VIAL IV SCH ×2 (10:21→21:23)
[2017-10-21] MEDS: ALBUMIN 25% 100 ML IV SCH ×2 (11:41→18:28)
[2017-10-21] MEDS: LACTULOSE 20Gm/30ML SOLN PO SCH ×3 (11:42→23:32)
[2017-10-21 14:07] LABS: Hemoglobin 7.1 g/dL (12.2-16.2)
[2017-10-21 14:09] LABS: Hematocrit 20.8 % (36.0-46.0)
[2017-10-21] MEDS ORDERED: PHENYLEPHRINE IV 0 ML IV ONE (14:45)
[2017-10-21] MEDS ORDERED: phytonadione 1 ML ONE (14:59)
[2017-10-21] MEDS ORDERED: PHYTONADIONE (VIT K)10 MG/ML 1ML VIAL IV ONE (15:00)
[2017-10-21] MEDS: PHENYLEPHRINE INJ 20 MG in SODIUM CHL 0.9% 250 ML IV SCH ×2 (15:05→23:08)
[2017-10-21] MEDS ORDERED: LORazepam 2MG/ML-1ML VIAL IV PRN (15:15)
[2017-10-21] MEDS ORDERED: NOREPINEPHRINE 8 MG/250ML KIT 0 ML IV ONE (15:16)
[2017-10-21] MEDS ORDERED: VASOPRESSIN 20 UNIT/ML ONE ×3 (15:18→15:23)
[2017-10-21] MEDS ORDERED: EPINEPHrine HCL 0 ML IV ONE (15:22)
[2017-10-21] MEDS: VASOPRESSIN 50 UNITS in D5W 5% 247.5 ML IV SCH (15:27)
[2017-10-21] MEDS ORDERED: NOREPINEPHRINE BITARTRATE 2 ML IV ONE (15:30)
[2017-10-21 19:58] LABS: Hematocrit 21.4 % (36.0-46.0); Hemoglobin 7.8 g/dL (12.2-16.2)
[2017-10-22] VITALS (106 sets, daily range): BP systolic 88–158; BP diastolic 35–113
[2017-10-22] MEDS: MEROPENEM 1gm/20ml IVPUSH 20 ML IV SCH ×3 (01:47→18:35)
[2017-10-22 02:08] LABS: Hemoglobin 8.1 g/dL (12.2-16.2); Red Cell Distribution Width 16.8 % (11.8-14.3)
[2017-10-22 02:10] LABS: Hematocrit 23.1 % (36.0-46.0); Mean Corpuscular Hemoglobin 32.5 pg (28.0-32.0); Mean Corpuscular Hgb Conc. 34.9 g/dL (32.0-36.0); Mean Corpuscular Volume 93.2 fL (80.0-100.0); Platelet Count (auto) 97 10^3/uL (140-450); Red Blood Cells 2.48 10^6/uL (4.0-5.20); White Blood Cell 22.7 10^3/uL (4.4-10.8)
[2017-10-22 02:12] LABS: Basophils % (manual) 0 (0.0-2.0); Blast Cells 0; Eosinophils % (manual) 0 (0-7); Promyelocytes % 0; Reactive Lymphocytes 0
[2017-10-22] MEDS: ALBUMIN 25% 100 ML IV SCH (02:15)
[2017-10-22] MEDS: ALBUTEROL SULF 2.5 MG/0.5ML(0.5%) NEB SOLN NEB SCH ×6 (02:20→22:25)
[2017-10-22] MEDS: IPRATROPIUM BROM 0.5 MG/2.5ML INH SOL NEB SCH ×6 (02:20→22:24)
[2017-10-22 02:32] LABS: Albumin 2.7 g/dL (3.4-5.0); BUN/Creatinine Ratio 62.8; Calcium 8.6 mg/dL (8.5-10.1); Potassium 4.4 mmol/L (3.5-5.1)
[2017-10-22 02:45] LABS: Bilirubin, Total 27.1 mg/dL (0.2-1.0)
[2017-10-22 02:52] LABS: Band Neutrophils % (manual) 11; Lymphocytes % (manual) 3 (10.0-50.0); Metamyelocytes % 4; Monocytes % (manual) 1 (0-12); Myelocytes % 3
[2017-10-22] MEDS: MIDAZOLAM DRIP 50 mg/50mL 50 ML IV SCH ×3 (03:05→18:35)
[2017-10-22] MEDS: LACTULOSE 20Gm/30ML SOLN PO SCH ×3 (05:40→18:35)
[2017-10-22] MEDS: PHENYLEPHRINE INJ 20 MG in SODIUM CHL 0.9% 250 ML IV SCH ×2 (07:28→15:48)
[2017-10-22] MEDS: PANTOPRAZOLE 40 MG/10 ML VIAL IV SCH (10:38)
[2017-10-22] MEDS: FUROSEMIDE 40 MG/4 ML VIAL IV SCH (10:38)
[2017-10-22] MEDS: HYDROCORTISONE SOD SUCC 100 MG/2ML INJ VIAL IV SCH ×2 (10:38→22:13)
[2017-10-22] MEDS ORDERED: EPINEPHrine HCL 1 MG/10 ML SYRG IV ONE (12:56)
[2017-10-22] MEDS: METOCLOPRAMIDE HCL 5MG/ml INJ 2ml VIAL IV SCH ×2 (14:24→22:13)
[2017-10-22] MEDS: VASOPRESSIN 50 UNITS in D5W 5% 247.5 ML IV SCH (15:30)
[2017-10-22 19:10] LABS: % Iron Saturation 94.7 % (15-50)
[2017-10-22 19:15] LABS: INR 1.59 (0.9-1.15); Prothrombin Time 16.6 sec (9.27-12.13)
[2017-10-22 20:59] LABS: Fibrinogen 101.7 mg/dL (177-375)
[2017-10-23] VITALS (101 sets, daily range): BP systolic 92–145; BP diastolic 43–81
[2017-10-23] MEDS: PHENYLEPHRINE INJ 20 MG in SODIUM CHL 0.9% 250 ML IV SCH ×3 (00:08→17:25)
[2017-10-23] MEDS: NOREPINEPHRINE 8 MG/250ML KIT 250 ML IV SCH ×2 (00:30→12:13)
[2017-10-23] MEDS: LACTULOSE 20Gm/30ML SOLN PO SCH ×5 (01:30→23:27)
[2017-10-23] MEDS: MEROPENEM 1gm/20ml IVPUSH 20 ML IV SCH ×3 (02:03→17:40)
[2017-10-23] MEDS: ALBUTEROL SULF 2.5 MG/0.5ML(0.5%) NEB SOLN NEB SCH ×6 (02:35→22:28)
[2017-10-23] MEDS: IPRATROPIUM BROM 0.5 MG/2.5ML INH SOL NEB SCH ×6 (02:36→22:28)
[2017-10-23] MEDS: MIDAZOLAM DRIP 50 mg/50mL 50 ML IV SCH (04:00)
[2017-10-23 05:20] LABS: Hemoglobin 7.7 g/dL (12.2-16.2); Red Cell Distribution Width 17.5 % (11.8-14.3)
[2017-10-23 05:22] LABS: Hematocrit 21.6 % (36.0-46.0); Mean Corpuscular Hemoglobin 34.3 pg (28.0-32.0); Mean Corpuscular Hgb Conc. 35.5 g/dL (32.0-36.0); Mean Corpuscular Volume 96.5 fL (80.0-100.0); Platelet Count (auto) 56 10^3/uL (140-450); Red Blood Cells 2.24 10^6/uL (4.0-5.20); White Blood Cell 17.2 10^3/uL (4.4-10.8)
[2017-10-23 05:31] LABS: Basophils % (manual) 0 (0.0-2.0); Blast Cells 0; Eosinophils % (manual) 0 (0-7); Myelocytes % 0; Promyelocytes % 0; Reactive Lymphocytes 0
[2017-10-23 05:32] LABS: INR 1.55 (0.9-1.15); Prothrombin Time 16.2 sec (9.27-12.13)
[2017-10-23 05:59] LABS: Albumin 2.6 g/dL (3.4-5.0); BUN/Creatinine Ratio 65.9; Calcium 8.4 mg/dL (8.5-10.1); Potassium 3.2 mmol/L (3.5-5.1)
[2017-10-23 06:16] LABS: Total Protein 3.7 g/dL (6.4-8.2)
[2017-10-23] MEDS: METOCLOPRAMIDE HCL 5MG/ml INJ 2ml VIAL IV SCH ×3 (06:30→21:43)
[2017-10-23 06:45] LABS: Band Neutrophils % (manual) 7; Lymphocytes % (manual) 2 (10.0-50.0); Metamyelocytes % 4; Monocytes % (manual) 3 (0-12)
[2017-10-23] MEDS: fentaNYL Drip 2500mCg/250mlNS 250 ML IV SCH (07:00)
[2017-10-23] MEDS ORDERED: POTASSIUM EFFERVESENT TAB 25 MEQ GT ONE (08:30)
[2017-10-23] MEDS: IV IMMUNE GLOBULIN(IVIG) 10% 20G/200ML IV SCH (09:41)
[2017-10-23] MEDS: FUROSEMIDE 40 MG/4 ML VIAL IV SCH (09:42)
[2017-10-23] MEDS: HYDROCORTISONE SOD SUCC 100 MG/2ML INJ VIAL IV SCH (09:43)
[2017-10-23] MEDS: PANTOPRAZOLE 40 MG/10 ML VIAL IV SCH (09:43)
[2017-10-23] MEDS ORDERED: IV IMMUNE GLOBULIN(IVIG) 10% 20G/200ML IV SCH (10:00)
[2017-10-23] MEDS ORDERED: NOREPINEPHRINE 8 MG/250ML KIT 500 ML IV ONE (12:12)
[2017-10-23] MEDS: VASOPRESSIN 50 UNITS in D5W 5% 247.5 ML IV SCH (15:30)
[2017-10-23] MEDS: POTASSIUM CHLORIDE 20 MEQ in D5W 5% 1,000 ML IV SCH (16:00)
[2017-10-23] MEDS: methylPREDNISolone SOD SUCC 40 MG/ML VL IV SCH (21:43)
[2017-10-24] VITALS (107 sets, daily range): BP systolic 80–147; BP diastolic 39–82
[2017-10-24] MEDS: PHENYLEPHRINE INJ 20 MG in SODIUM CHL 0.9% 250 ML IV SCH ×3 (01:08→17:48)
[2017-10-24] MEDS: MEROPENEM 1gm/20ml IVPUSH 20 ML IV SCH ×3 (01:43→18:01)
[2017-10-24] MEDS: ALBUTEROL SULF 2.5 MG/0.5ML(0.5%) NEB SOLN NEB SCH ×6 (02:36→21:53)
[2017-10-24] MEDS: IPRATROPIUM BROM 0.5 MG/2.5ML INH SOL NEB SCH ×6 (02:36→21:53)
[2017-10-24] MEDS: fentaNYL Drip 2500mCg/250mlNS 250 ML IV SCH ×2 (02:45→20:36)
[2017-10-24] MEDS: MIDAZOLAM DRIP 50 mg/50mL 50 ML IV SCH ×4 (02:45→23:52)
[2017-10-24 03:43] LABS: White Blood Cell 11.9 10^3/uL (4.4-10.8)
[2017-10-24 03:45] LABS: Hematocrit 20.8 % (36.0-46.0); Hemoglobin 7.2 g/dL (12.2-16.2); Mean Corpuscular Hemoglobin 36.7 pg (28.0-32.0); Mean Corpuscular Hgb Conc. 34.9 g/dL (32.0-36.0); Mean Corpuscular Volume 105.2 fL (80.0-100.0); Platelet Count (auto) 38 10^3/uL (140-450); Red Blood Cells 1.97 10^6/uL (4.0-5.20)
[2017-10-24 03:56] LABS: Red Cell Distribution Width 20.6 % (11.8-14.3)
[2017-10-24 03:57] LABS: Basophils % (manual) 0 (0.0-2.0); Blast Cells 0; Eosinophils % (manual) 0 (0-7); Myelocytes % 0; Promyelocytes % 0; Reactive Lymphocytes 0
[2017-10-24 04:00] LABS: Potassium 3.2 mmol/L (3.5-5.1)
[2017-10-24 04:04] LABS: BUN/Creatinine Ratio 59.8; Calcium 8.2 mg/dL (8.5-10.1)
[2017-10-24 04:13] LABS: Bilirubin, Total 25.4 mg/dL (0.2-1.0)
[2017-10-24 04:27] LABS: Total Protein 5.4 g/dL (6.4-8.2)
[2017-10-24 05:29] LABS: Band Neutrophils % (manual) 4; Lymphocytes % (manual) 3 (10.0-50.0); Metamyelocytes % 2; Monocytes % (manual) 3 (0-12)
[2017-10-24] MEDS: METOCLOPRAMIDE HCL 5MG/ml INJ 2ml VIAL IV SCH ×3 (05:34→22:51)
[2017-10-24] MEDS: LACTULOSE 20Gm/30ML SOLN PO SCH ×3 (05:34→14:46)
[2017-10-24] MEDS: methylPREDNISolone SOD SUCC 40 MG/ML VL IV SCH ×3 (05:34→22:51)
[2017-10-24] MEDS: PANTOPRAZOLE 40 MG/10 ML VIAL IV SCH (10:14)
[2017-10-24] MEDS: IV IMMUNE GLOBULIN(IVIG) 10% 20G/200ML IV SCH (10:49)
[2017-10-24] MEDS: POTASSIUM CHLORIDE 20 MEQ in D5W 5% 1,000 ML IV SCH (10:57)
[2017-10-24] MEDS ORDERED: POTASSIUM EFFERVESENT TAB 25 MEQ GT ONE (14:45)
[2017-10-24] MEDS: VASOPRESSIN 50 UNITS in D5W 5% 247.5 ML IV SCH (17:20)
[2017-10-25] VITALS (108 sets, daily range): BP systolic 88–148; BP diastolic 46–99
[2017-10-25] MEDS: NOREPINEPHRINE 8 MG/250ML KIT 250 ML IV SCH (00:30)
[2017-10-25] MEDS: MEROPENEM 1gm/20ml IVPUSH 20 ML IV SCH ×3 (01:33→17:29)
[2017-10-25] MEDS: LACTULOSE 20Gm/30ML SOLN PO SCH ×5 (01:33→23:50)
[2017-10-25] MEDS: ALBUTEROL SULF 2.5 MG/0.5ML(0.5%) NEB SOLN NEB SCH ×6 (02:49→22:29)
[2017-10-25] MEDS: IPRATROPIUM BROM 0.5 MG/2.5ML INH SOL NEB SCH ×6 (02:49→22:29)
[2017-10-25 04:02] LABS: Hematocrit 19.2 % (36.0-46.0); Mean Corpuscular Hemoglobin 38.3 pg (28.0-32.0); Mean Corpuscular Hgb Conc. 35.3 g/dL (32.0-36.0); Mean Corpuscular Volume 108.5 fL (80.0-100.0); Platelet Count (auto) 35 10^3/uL (140-450); Red Blood Cells 1.77 10^6/uL (4.0-5.20); White Blood Cell 15.5 10^3/uL (4.4-10.8)
[2017-10-25 04:21] LABS: Hemoglobin 6.8 g/dL (12.2-16.2)
[2017-10-25 04:34] LABS: Albumin 1.6 g/dL (3.4-5.0); BUN/Creatinine Ratio 59.5; Bilirubin, Total 24.2 mg/dL (0.2-1.0); Potassium 3.4 mmol/L (3.5-5.1); Total Protein 6.6 g/dL (6.4-8.2)
[2017-10-25] MEDS: PHENYLEPHRINE INJ 20 MG in SODIUM CHL 0.9% 250 ML IV SCH ×2 (05:04→10:28)
[2017-10-25] MEDS: MIDAZOLAM DRIP 50 mg/50mL 50 ML IV SCH ×4 (05:04→23:00)
[2017-10-25 05:05] LABS: Basophils % (manual) 0 (0.0-2.0); Blast Cells 0; Eosinophils % (manual) 0 (0-7); Metamyelocytes % 0; Promyelocytes % 0; Reactive Lymphocytes 0
[2017-10-25 05:09] LABS: Band Neutrophils % (manual) 4; Lymphocytes % (manual) 3 (10.0-50.0); Monocytes % (manual) 4 (0-12); Myelocytes % 1
[2017-10-25] MEDS ORDERED: POTASSIUM CHL 20MEQ/100ML 100 ML IV ONE (06:00)
[2017-10-25] MEDS: methylPREDNISolone SOD SUCC 40 MG/ML VL IV SCH ×3 (06:33→21:51)
[2017-10-25] MEDS: METOCLOPRAMIDE HCL 5MG/ml INJ 2ml VIAL IV SCH ×3 (06:33→21:51)
[2017-10-25] MEDS: POTASSIUM CHLORIDE 20 MEQ in D5W 5% 1,000 ML IV SCH (09:20)
[2017-10-25] MEDS: fentaNYL Drip 2500mCg/250mlNS 250 ML IV SCH (10:12)
[2017-10-25] MEDS: PANTOPRAZOLE 40 MG/10 ML VIAL IV SCH (10:36)
[2017-10-26] VITALS (105 sets, daily range): BP systolic 79–141; BP diastolic 38–88
[2017-10-26] MEDS: NOREPINEPHRINE 8 MG/250ML KIT 250 ML IV SCH (00:30)
[2017-10-26] MEDS: MEROPENEM 1gm/20ml IVPUSH 20 ML IV SCH ×3 (01:40→18:06)
[2017-10-26] MEDS: IPRATROPIUM BROM 0.5 MG/2.5ML INH SOL NEB SCH ×6 (02:30→22:32)
[2017-10-26] MEDS: ALBUTEROL SULF 2.5 MG/0.5ML(0.5%) NEB SOLN NEB SCH ×6 (02:30→22:33)
[2017-10-26] MEDS: MIDAZOLAM DRIP 50 mg/50mL 50 ML IV SCH ×4 (02:33→21:06)
[2017-10-26 04:24] LABS: Hemoglobin 8.4 g/dL (12.2-16.2); White Blood Cell 17.4 10^3/uL (4.4-10.8)
[2017-10-26 04:27] LABS: Mean Corpuscular Hemoglobin 35.1 pg (28.0-32.0); Mean Corpuscular Hgb Conc. 34.8 g/dL (32.0-36.0); Mean Corpuscular Volume 100.9 fL (80.0-100.0); Platelet Count (auto) 41 10^3/uL (140-450); Red Blood Cells 2.38 10^6/uL (4.0-5.20)
[2017-10-26 04:39] LABS: Calcium 8.3 mg/dL (8.5-10.1); Potassium 3.8 mmol/L (3.5-5.1)
[2017-10-26 04:43] LABS: Albumin 1.6 g/dL (3.4-5.0); BUN/Creatinine Ratio 59.5
[2017-10-26 04:46] LABS: Basophils % (manual) 0 (0.0-2.0); Blast Cells 0; Eosinophils % (manual) 0 (0-7); Myelocytes % 0; Promyelocytes % 0
[2017-10-26 04:54] LABS: Bilirubin, Total 25.8 mg/dL (0.2-1.0); Total Protein 6.1 g/dL (6.4-8.2)
[2017-10-26] MEDS: METOCLOPRAMIDE HCL 5MG/ml INJ 2ml VIAL IV SCH ×3 (05:37→22:14)
[2017-10-26] MEDS: LACTULOSE 20Gm/30ML SOLN PO SCH ×3 (05:37→18:06)
[2017-10-26] MEDS: methylPREDNISolone SOD SUCC 40 MG/ML VL IV SCH ×3 (05:38→22:14)
[2017-10-26 05:49] LABS: Band Neutrophils % (manual) 4; Lymphocytes % (manual) 2 (10.0-50.0); Metamyelocytes % 3; Monocytes % (manual) 6 (0-12); Reactive Lymphocytes 1
[2017-10-26] MEDS: fentaNYL Drip 2500mCg/250mlNS 250 ML IV SCH ×2 (06:02→23:05)
[2017-10-26] MEDS: PANTOPRAZOLE 40 MG/10 ML VIAL IV SCH (09:56)
[2017-10-27] VITALS (101 sets, daily range): BP systolic 82–138; BP diastolic 39–98
[2017-10-27] MEDS: LACTULOSE 20Gm/30ML SOLN PO SCH ×5 (00:11→22:06)
[2017-10-27] MEDS: NOREPINEPHRINE 8 MG/250ML KIT 250 ML IV SCH ×2 (00:30→11:36)
[2017-10-27] MEDS: MEROPENEM 1gm/20ml IVPUSH 20 ML IV SCH ×2 (01:41→09:55)
[2017-10-27] MEDS: MIDAZOLAM DRIP 50 mg/50mL 50 ML IV SCH ×3 (01:41→21:35)
[2017-10-27] MEDS: ALBUTEROL SULF 2.5 MG/0.5ML(0.5%) NEB SOLN NEB SCH ×6 (02:29→22:12)
[2017-10-27] MEDS: IPRATROPIUM BROM 0.5 MG/2.5ML INH SOL NEB SCH ×6 (02:29→22:12)
[2017-10-27 03:53] LABS: Basophils # (auto) 0 uL; Eosinophils # (auto) 0 uL; Hemoglobin 8.2 g/dL (12.2-16.2); Lymphocytes # (auto) 0.3 uL; Monocytes # (auto) 0.6 uL
[2017-10-27 03:55] LABS: Basophils % (auto) 0.3 % (0.0-2.0); Hematocrit 23.4 % (36.0-46.0); Lymphocytes % (auto) 2.1 % (10.0-50.0); Mean Corpuscular Hemoglobin 35.2 pg (28.0-32.0); Mean Corpuscular Volume 100.5 fL (80.0-100.0); Monocytes % (auto) 5.2 % (0.0-12.0); Neutrophils # (auto) 11.1 uL; Neutrophils % (auto) 92.4 % (37.0-80.0); Nucleated Red Blood Cells % 0.5 %; Platelet Count (auto) 38 10^3/uL (140-450); Red Blood Cells 2.33 10^6/uL (4.0-5.20); White Blood Cell 12.1 10^3/uL (4.4-10.8)
[2017-10-27 04:10] LABS: BUN/Creatinine Ratio 54.3; Calcium 8.2 mg/dL (8.5-10.1); Potassium 3.6 mmol/L (3.5-5.1)
[2017-10-27 04:22] LABS: Albumin 1.5 g/dL (3.4-5.0); Bilirubin, Total 26.1 mg/dL (0.2-1.0); Total Protein 5.6 g/dL (6.4-8.2)
[2017-10-27 04:24] LABS: Red Cell Distribution Width 30.7 % (11.8-14.3)
[2017-10-27] MEDS: methylPREDNISolone SOD SUCC 40 MG/ML VL IV SCH ×2 (05:45→22:05)
[2017-10-27] MEDS: METOCLOPRAMIDE HCL 5MG/ml INJ 2ml VIAL IV SCH ×3 (05:45→22:06)
[2017-10-27] MEDS: PANTOPRAZOLE 40 MG/10 ML VIAL IV SCH (09:55)
[2017-10-27] MEDS: FLUCONAZOLE 200MG/100ML 100 ML IV SCH (14:21)
[2017-10-27 14:40] LABS: Urine Bacteria MANY /hpf (None Seen); Urine Blood 1+ /uL (Negative); Urine Budding Yeast LOADED /hpf (None Seen); Urine Specific Gravity 1.021 (1.001-1.035)
[2017-10-27 14:44] LABS: Urine WBC 0-2 /hpf (0 - 5)
[2017-10-27] MEDS: fentaNYL Drip 2500mCg/250mlNS 250 ML IV SCH (17:25)
[2017-10-28] VITALS (105 sets, daily range): BP systolic 92–143; BP diastolic 42–74
[2017-10-28] MEDS: IPRATROPIUM BROM 0.5 MG/2.5ML INH SOL NEB SCH ×6 (02:12→22:20)
[2017-10-28] MEDS: ALBUTEROL SULF 2.5 MG/0.5ML(0.5%) NEB SOLN NEB SCH ×6 (02:12→22:20)
[2017-10-28] MEDS: MIDAZOLAM DRIP 50 mg/50mL 50 ML IV SCH ×5 (02:44→23:01)
[2017-10-28 04:07] LABS: Albumin 1.5 g/dL (3.4-5.0); BUN/Creatinine Ratio 56.5; Calcium 8.1 mg/dL (8.5-10.1); Potassium 3.9 mmol/L (3.5-5.1)
[2017-10-28 04:19] LABS: Bilirubin, Total 27.3 mg/dL (0.2-1.0); Total Protein 5.5 g/dL (6.4-8.2)
[2017-10-28] MEDS: LACTULOSE 20Gm/30ML SOLN PO SCH ×4 (05:47→23:49)
[2017-10-28] MEDS: METOCLOPRAMIDE HCL 5MG/ml INJ 2ml VIAL IV SCH ×3 (06:00→21:36)
[2017-10-28] MEDS: methylPREDNISolone SOD SUCC 40 MG/ML VL IV SCH ×2 (10:36→21:37)
[2017-10-28] MEDS: PANTOPRAZOLE 40 MG/10 ML VIAL IV SCH (10:36)
[2017-10-28] MEDS: FLUCONAZOLE 200MG/100ML 100 ML IV SCH (10:37)
[2017-10-28] MEDS: fentaNYL Drip 2500mCg/250mlNS 250 ML IV SCH (18:00)
[2017-10-29] VITALS (108 sets, daily range): BP systolic 87–133; BP diastolic 37–74
[2017-10-29] MEDS: NOREPINEPHRINE 8 MG/250ML KIT 250 ML IV SCH ×2 (00:30→09:33)
[2017-10-29] MEDS: IPRATROPIUM BROM 0.5 MG/2.5ML INH SOL NEB SCH ×6 (02:13→22:01)
[2017-10-29] MEDS: ALBUTEROL SULF 2.5 MG/0.5ML(0.5%) NEB SOLN NEB SCH ×6 (02:13→22:01)
[2017-10-29] MEDS: fentaNYL Drip 2500mCg/250mlNS 250 ML IV SCH (02:21)
[2017-10-29] MEDS: MIDAZOLAM DRIP 50 mg/50mL 50 ML IV SCH ×3 (04:17→07:39)
[2017-10-29] MEDS: LACTULOSE 20Gm/30ML SOLN PO SCH ×3 (05:56→17:46)
[2017-10-29] MEDS: METOCLOPRAMIDE HCL 5MG/ml INJ 2ml VIAL IV SCH ×3 (05:56→22:38)
[2017-10-29] MEDS: FLUCONAZOLE 200MG/100ML 100 ML IV SCH (09:33)
[2017-10-29] MEDS: methylPREDNISolone SOD SUCC 40 MG/ML VL IV SCH ×2 (09:33→22:38)
[2017-10-29] MEDS: PANTOPRAZOLE 40 MG/10 ML VIAL IV SCH (09:33)
[2017-10-29] MEDS ORDERED: MICAFUNGIN SODIUM 100 MG in SODIUM CHL 0.9% 100 ML IV ONE (12:30)
[2017-10-29] MEDS ORDERED: SENNA 8.6 MG TAB PO ONE (12:30)
[2017-10-29] MEDS ORDERED: LINEZOLID 600MG/300ML 300 ML IV ONE (14:00)
[2017-10-29] MEDS ORDERED: LORazepam 2MG/ML-1ML VIAL IV PRN (16:30)
[2017-10-29] MEDS: LINEZOLID 600MG/300ML 300 ML IV SCH (22:38)
[2017-10-30] VITALS (108 sets, daily range): BP systolic 92–132; BP diastolic 45–101
[2017-10-30] MEDS: LACTULOSE 20Gm/30ML SOLN PO SCH ×4 (00:07→23:31)
[2017-10-30] MEDS: IPRATROPIUM BROM 0.5 MG/2.5ML INH SOL NEB SCH ×6 (02:10→22:25)
[2017-10-30] MEDS: ALBUTEROL SULF 2.5 MG/0.5ML(0.5%) NEB SOLN NEB SCH ×6 (02:10→22:25)
[2017-10-30 03:49] LABS: Basophils # (auto) 0 uL; Eosinophils # (auto) 0 uL; Lymphocytes # (auto) 0.2 uL; Monocytes # (auto) 0.6 uL
[2017-10-30 03:51] LABS: Basophils % (auto) 0.3 % (0.0-2.0); Hemoglobin 9.1 g/dL (12.2-16.2); Lymphocytes % (auto) 1.9 % (10.0-50.0); Mean Corpuscular Hgb Conc. 33.9 g/dL (32.0-36.0); Mean Corpuscular Volume 103.2 fL (80.0-100.0); Monocytes % (auto) 6.1 % (0.0-12.0); Neutrophils % (auto) 91.7 % (37.0-80.0); Nucleated Red Blood Cells % 0.1 %; Platelet Count (auto) 36 10^3/uL (140-450); Red Blood Cells 2.61 10^6/uL (4.0-5.20); White Blood Cell 9.8 10^3/uL (4.4-10.8)
[2017-10-30 03:57] LABS: Red Cell Distribution Width 33.9 % (11.8-14.3)
[2017-10-30 04:11] LABS: Albumin 1.6 g/dL (3.4-5.0); BUN/Creatinine Ratio 50.4; Bilirubin, Total 27.4 mg/dL (0.2-1.0); Calcium 8.5 mg/dL (8.5-10.1); Potassium 3.6 mmol/L (3.5-5.1)
[2017-10-30 04:24] LABS: Total Protein 5.3 g/dL (6.4-8.2)
[2017-10-30] MEDS: METOCLOPRAMIDE HCL 5MG/ml INJ 2ml VIAL IV SCH ×3 (06:04→21:53)
[2017-10-30] MEDS: LINEZOLID 600MG/300ML 300 ML IV SCH ×2 (09:50→21:52)
[2017-10-30] MEDS: PANTOPRAZOLE 40 MG/10 ML VIAL IV SCH (09:50)
[2017-10-30] MEDS: methylPREDNISolone SOD SUCC 40 MG/ML VL IV SCH ×2 (09:50→21:53)
[2017-10-30] MEDS: MICAFUNGIN SODIUM 100 MG in SODIUM CHL 0.9% 100 ML IV SCH (09:51)
[2017-10-30] MEDS: FREE WATER GT SCH ×2 (12:15→23:30)
[2017-10-30] MEDS: URSODIOL 300 MG CAP PO SCH (21:53)
[2017-10-31] VITALS (92 sets, daily range): BP systolic 68–152; BP diastolic 6–93
[2017-10-31] MEDS: NOREPINEPHRINE 8 MG/250ML KIT 250 ML IV SCH (00:30)
[2017-10-31] MEDS: ALBUTEROL SULF 2.5 MG/0.5ML(0.5%) NEB SOLN NEB SCH ×6 (02:27→22:03)
[2017-10-31] MEDS: IPRATROPIUM BROM 0.5 MG/2.5ML INH SOL NEB SCH ×6 (02:27→22:03)
[2017-10-31 04:14] LABS: Potassium 3.7 mmol/L (3.5-5.1)
[2017-10-31 04:19] LABS: Albumin 1.5 g/dL (3.4-5.0); BUN/Creatinine Ratio 49.6; Calcium 8.7 mg/dL (8.5-10.1)
[2017-10-31 04:31] LABS: Bilirubin, Total 28.7 mg/dL (0.2-1.0); Total Protein 5.2 g/dL (6.4-8.2)
[2017-10-31] MEDS: LACTULOSE 20Gm/30ML SOLN PO SCH ×3 (05:27→18:19)
[2017-10-31] MEDS: METOCLOPRAMIDE HCL 5MG/ml INJ 2ml VIAL IV SCH ×3 (05:28→22:24)
[2017-10-31] MEDS: FREE WATER GT SCH ×5 (05:28→22:24)
[2017-10-31] MEDS: PANTOPRAZOLE 40 MG/10 ML VIAL IV SCH (09:42)
[2017-10-31] MEDS: methylPREDNISolone SOD SUCC 40 MG/ML VL IV SCH ×2 (09:42→22:00)
[2017-10-31] MEDS: MICAFUNGIN SODIUM 100 MG in SODIUM CHL 0.9% 100 ML IV SCH (09:42)
[2017-10-31] MEDS: URSODIOL 300 MG CAP PO SCH ×2 (09:43→22:00)
[2017-10-31] MEDS: LINEZOLID 600MG/300ML 300 ML IV SCH ×2 (09:43→22:00)
[2017-10-31 15:27] LABS: INR 1.22 (0.9-1.15); Partial Thromboplastin Time 26.1 sec (23.78-33.04); Prothrombin Time 12.9 sec (9.27-12.13)
[2017-11-01] VITALS (44 sets, daily range): BP systolic 117–159; BP diastolic 61–98
[2017-11-01] MEDS: NOREPINEPHRINE 8 MG/250ML KIT 250 ML IV SCH (00:30)
[2017-11-01] MEDS: ALBUTEROL SULF 2.5 MG/0.5ML(0.5%) NEB SOLN NEB SCH ×5 (01:50→22:53)
[2017-11-01] MEDS: IPRATROPIUM BROM 0.5 MG/2.5ML INH SOL NEB SCH ×5 (01:50→22:53)
[2017-11-01] MEDS: FREE WATER GT SCH ×6 (02:00→22:00)
[2017-11-01 03:51] LABS: Basophils # (auto) 0 uL; Basophils % (auto) 0.1 % (0.0-2.0); Eosinophils # (auto) 0 uL; Hemoglobin 9.7 g/dL (12.2-16.2); Lymphocytes # (auto) 0.2 uL; Monocytes # (auto) 0.7 uL; Monocytes % (auto) 5.7 % (0.0-12.0); Nucleated Red Blood Cells % 0.2 %
[2017-11-01 03:55] LABS: Hematocrit 28.8 % (36.0-46.0); Lymphocytes % (auto) 1.5 % (10.0-50.0); Mean Corpuscular Hemoglobin 35.3 pg (28.0-32.0); Mean Corpuscular Hgb Conc. 33.7 g/dL (32.0-36.0); Mean Corpuscular Volume 104.8 fL (80.0-100.0); Neutrophils # (auto) 11.5 uL; Neutrophils % (auto) 92.7 % (37.0-80.0); Platelet Count (auto) 27 10^3/uL (140-450); Red Blood Cells 2.75 10^6/uL (4.0-5.20); White Blood Cell 12.4 10^3/uL (4.4-10.8)
[2017-11-01 04:19] LABS: Albumin 1.5 g/dL (3.4-5.0); Calcium 8.5 mg/dL (8.5-10.1); Potassium 3.7 mmol/L (3.5-5.1)
[2017-11-01 04:21] LABS: BUN/Creatinine Ratio 47.6
[2017-11-01 04:34] LABS: Bilirubin, Total 29.8 mg/dL (0.2-1.0); Total Protein 5.1 g/dL (6.4-8.2)
[2017-11-01 04:44] LABS: Red Cell Distribution Width 33.2 % (11.8-14.3)
[2017-11-01] MEDS: METOCLOPRAMIDE HCL 5MG/ml INJ 2ml VIAL IV SCH ×3 (05:30→22:00)
[2017-11-01] MEDS: LACTULOSE 20Gm/30ML SOLN PO SCH ×4 (06:00→18:30)
[2017-11-01] MEDS: PANTOPRAZOLE 40 MG/10 ML VIAL IV SCH (09:52)
[2017-11-01] MEDS: methylPREDNISolone SOD SUCC 40 MG/ML VL IV SCH ×2 (09:52→22:00)
[2017-11-01] MEDS: MICAFUNGIN SODIUM 100 MG in SODIUM CHL 0.9% 100 ML IV SCH (09:52)
[2017-11-01] MEDS: LINEZOLID 600MG/300ML 300 ML IV SCH (09:53)
[2017-11-01] MEDS: URSODIOL 300 MG CAP PO SCH ×2 (10:11→22:00)
[2017-11-01] MEDS: LORazepam 2MG/ML-1ML VIAL IV PRN (14:31)
[2017-11-01] MEDS: fentaNYL Drip 2500mCg/250mlNS 250 ML IV SCH (15:45)
[2017-11-02] VITALS (90 sets, daily range): BP systolic 104–144; BP diastolic 51–85
[2017-11-02] MEDS: LACTULOSE 20Gm/30ML SOLN PO SCH ×4 (00:13→18:15)
[2017-11-02] MEDS: IPRATROPIUM BROM 0.5 MG/2.5ML INH SOL NEB SCH ×6 (01:39→22:26)
[2017-11-02] MEDS: ALBUTEROL SULF 2.5 MG/0.5ML(0.5%) NEB SOLN NEB SCH ×6 (01:39→22:26)
[2017-11-02] MEDS: FREE WATER GT SCH ×6 (02:13→22:00)
[2017-11-02] MEDS: LORazepam 2MG/ML-1ML VIAL IV PRN (02:13)
[2017-11-02] MEDS: METOCLOPRAMIDE HCL 5MG/ml INJ 2ml VIAL IV SCH ×3 (05:40→22:00)
[2017-11-02] MEDS: fentaNYL Drip 2500mCg/250mlNS 250 ML IV SCH (06:02)
[2017-11-02 08:18] LABS: Hematocrit 29.1 % (36.0-46.0); Hemoglobin 9.5 g/dL (12.2-16.2); Mean Corpuscular Hemoglobin 34.9 pg (28.0-32.0); Mean Corpuscular Hgb Conc. 32.8 g/dL (32.0-36.0); Mean Corpuscular Volume 106.4 fL (80.0-100.0); Platelet Count (auto) 26 10^3/uL (140-450); Red Blood Cells 2.74 10^6/uL (4.0-5.20); White Blood Cell 7.7 10^3/uL (4.4-10.8)
[2017-11-02 08:19] LABS: Red Cell Distribution Width 32.6 % (11.8-14.3)
[2017-11-02 08:24] LABS: Basophils % (manual) 0 (0.0-2.0); Blast Cells 0; Eosinophils % (manual) 0 (0-7); Metamyelocytes % 0; Myelocytes % 0; Promyelocytes % 0; Reactive Lymphocytes 0
[2017-11-02 08:38] LABS: Band Neutrophils % (manual) 5; Lymphocytes % (manual) 3 (10.0-50.0); Monocytes % (manual) 11 (0-12)
[2017-11-02 08:52] LABS: Albumin 1.5 g/dL (3.4-5.0); BUN/Creatinine Ratio 46.4; Calcium 8.4 mg/dL (8.5-10.1); Potassium 3.6 mmol/L (3.5-5.1)
[2017-11-02 09:02] LABS: Total Protein 4.9 g/dL (6.4-8.2)
[2017-11-02 09:10] LABS: Bilirubin, Total 27.1 mg/dL (0.2-1.0)
[2017-11-02] MEDS: methylPREDNISolone SOD SUCC 40 MG/ML VL IV SCH ×2 (10:29→22:00)
[2017-11-02] MEDS: PANTOPRAZOLE 40 MG/10 ML VIAL IV SCH (10:29)
[2017-11-02] MEDS: URSODIOL 300 MG CAP PO SCH ×2 (10:29→22:00)
[2017-11-03] VITALS (96 sets, daily range): BP systolic 76–133; BP diastolic 33–89
[2017-11-03] MEDS: LACTULOSE 20Gm/30ML SOLN PO SCH ×4 (00:07→17:46)
[2017-11-03] MEDS: FREE WATER GT SCH ×6 (02:00→22:08)
[2017-11-03] MEDS: ALBUTEROL SULF 2.5 MG/0.5ML(0.5%) NEB SOLN NEB SCH ×6 (02:23→22:09)
[2017-11-03] MEDS: IPRATROPIUM BROM 0.5 MG/2.5ML INH SOL NEB SCH ×6 (02:23→22:09)
[2017-11-03] MEDS: fentaNYL Drip 2500mCg/250mlNS 250 ML IV SCH (04:30)
[2017-11-03 04:45] LABS: Albumin 1.4 g/dL (3.4-5.0); BUN/Creatinine Ratio 43.6; Bilirubin, Total 26.1 mg/dL (0.2-1.0); Calcium 8.5 mg/dL (8.5-10.1); Potassium 3.5 mmol/L (3.5-5.1); Total Protein 4.8 g/dL (6.4-8.2)
[2017-11-03] MEDS: METOCLOPRAMIDE HCL 5MG/ml INJ 2ml VIAL IV SCH ×3 (06:18→22:08)
[2017-11-03 07:36] LABS: Basophils # (auto) 0 uL; Eosinophils # (auto) 0 uL; Lymphocytes # (auto) 0.2 uL
[2017-11-03 07:38] LABS: Hematocrit 30.2 % (36.0-46.0); Lymphocytes % (auto) 2.6 % (10.0-50.0); Mean Corpuscular Hemoglobin 36.4 pg (28.0-32.0); Mean Corpuscular Hgb Conc. 33.3 g/dL (32.0-36.0); Mean Corpuscular Volume 109.4 fL (80.0-100.0); Monocytes # (auto) 0.3 uL; Monocytes % (auto) 4.4 % (0.0-12.0); Neutrophils # (auto) 5.5 uL; Red Blood Cells 2.76 10^6/uL (4.0-5.20); White Blood Cell 5.9 10^3/uL (4.4-10.8)
[2017-11-03 07:45] LABS: Platelet Count (auto) 26 10^3/uL (140-450); Red Cell Distribution Width 32.9 % (11.8-14.3)
[2017-11-03] MEDS ORDERED: PANTOPRAZOLE 40 MG TAB PO ONE (09:56)
[2017-11-03] MEDS: URSODIOL 300 MG CAP PO SCH ×2 (09:57→22:08)
[2017-11-03] MEDS: methylPREDNISolone SOD SUCC 40 MG/ML VL IV SCH ×2 (09:57→22:08)
[2017-11-03] MEDS: PANTOPRAZOLE 40 MG/10 ML VIAL IV SCH (09:57)
[2017-11-03] MEDS ORDERED: NOREPINEPHRINE 8 MG/250ML KIT 250 ML IV ONE (12:50)
[2017-11-03] MEDS: NOREPINEPHRINE 8 MG/250ML KIT 250 ML IV SCH ×2 (13:36→19:35)
[2017-11-04] MEDS: LACTULOSE 20Gm/30ML SOLN PO SCH
[2017-11-04] MEDS: NOREPINEPHRINE 8 MG/250ML KIT 250 ML IV SCH (01:13)
[2017-11-04] MEDS: fentaNYL Drip 2500mCg/250mlNS 250 ML IV SCH (01:54)
[2017-11-04] MEDS: FREE WATER GT SCH (01:55)
[2017-11-04 02:00] VITALS: BP 98/60
[2017-11-04] MEDS: ALBUTEROL SULF 2.5 MG/0.5ML(0.5%) NEB SOLN NEB SCH (02:00)
[2017-11-04] MEDS: IPRATROPIUM BROM 0.5 MG/2.5ML INH SOL NEB SCH (02:00)
== END 2017-11-04 11:42 | disposition expired | DRG 870 ==
LOC: ER 19:32 → EDUNIT# 19:33 → OVERFLOW 19:33 → ICU WEST 23:33 → EAST 23:37 → ICU WEST 10-13 00:47
PROVIDERS: ADMIT Nurse Practitioner; ATTEND Internal Medicine
PROC: 5A1955Z Respiratory Ventilation, Greater than 96 Consecutive Hours (ICD-10-PCS; principal; 2017-10-13)
PROC: 0BH17EZ Insertion of Endotracheal Airway into Trachea, Via Natural or Artificial Opening (ICD-10-PCS; 2017-10-13)
PROC: 02HV33Z Insertion of Infusion Device into Superior Vena Cava, Percutaneous Approach (ICD-10-PCS; 2017-10-13)
PROC: 30233R1 Transfusion of Nonautologous Platelets into Peripheral Vein, Percutaneous Approach (ICD-10-PCS; 2017-10-13)
PROC: 30233N1 Transfusion of Nonautologous Red Blood Cells into Peripheral Vein, Percutaneous Approach (ICD-10-PCS; 2017-10-21)
PROC: 30233L1 Transfusion of Nonautologous Fresh Plasma into Peripheral Vein, Percutaneous Approach (ICD-10-PCS; 2017-10-21)
PROC: 30233K1 Transfusion of Nonautologous Frozen Plasma into Peripheral Vein, Percutaneous Approach (ICD-10-PCS; 2017-10-21)
DX: A41.59 Other Gram-negative sepsis (principal); R65.21 Severe sepsis with septic shock; E43 Unspecified severe protein-calorie malnutrition; J96.01 Acute respiratory failure with hypoxia; N17.0 Acute kidney failure with tubular necrosis; J18.9 Pneumonia, unspecified organism; G92 Toxic encephalopathy; K72.01 Acute and subacute hepatic failure with coma; D68.4 Acquired coagulation factor deficiency; J98.11 Atelectasis; N12 Tubulo-interstitial nephritis, not specified as acute or chronic; E87.0 Hyperosmolality and hypernatremia; D50.9 Iron deficiency anemia, unspecified; B96.1 Klebsiella pneumoniae [K. pneumoniae] as the cause of diseases classified elsewhere; D63.8 Anemia in other chronic diseases classified elsewhere; D53.9 Nutritional anemia, unspecified; D69.6 Thrombocytopenia, unspecified; E86.0 Dehydration; E03.9 Hypothyroidism, unspecified; F17.200 Nicotine dependence, unspecified, uncomplicated; F20.9 Schizophrenia, unspecified; F31.9 Bipolar disorder, unspecified; F79 Unspecified intellectual disabilities; G31.9 Degenerative disease of nervous system, unspecified; G40.909 Epilepsy, unspecified, not intractable, without status epilepticus; E66.9 Obesity, unspecified; F41.9 Anxiety disorder, unspecified; F09 Unspecified mental disorder due to known physiological condition; J45.909 Unspecified asthma, uncomplicated; K21.9 Gastro-esophageal reflux disease without esophagitis; K72.10 Chronic hepatic failure without coma; K74.60 Unspecified cirrhosis of liver; K75.4 Autoimmune hepatitis; N18.3 Chronic kidney disease, stage 3 (moderate); S30.1XXA Contusion of abdominal wall, initial encounter; X58.XXXA Exposure to other specified factors, initial encounter; Y93.89 Activity, other specified; Z79.899 Other long term (current) drug therapy; Y92.89 Other specified places as the place of occurrence of the external cause; Z81.8 Family history of other mental and behavioral disorders; Z82.0 Family history of epilepsy and other diseases of the nervous system; Z82.49 Family history of ischemic heart disease and other diseases of the circulatory system; Z88.8 Allergy status to other drugs, medicaments and biological substances; Z82.5 Family history of asthma and other chronic lower respiratory diseases; Z86.61 Personal history of infections of the central nervous system; Z87.442 Personal history of urinary calculi; Z68.37 Body mass index [BMI] 37.0-37.9, adult
CPT/HCPCS: 36415; 36600; 51702; 70450; 71045; 74176; 76705; 76775; 76881; 80048; 80053; 80164; 80185; 80202; 80307; 80320; 81001; 82040; 82140; 82550; 82570; 82607; 82728; 82746; 82805; 82962; 83010; 83540; 83550; 83605; 83615; 83735; 84100; 84156; 84300; 84436; 84443; 84478; 84484; 84702; 85007; 85014; 85018; 85025; 85027; 85045; 85384; 85610; 85652; 85730; 86038; 86703; 86706; 86803; 86850; 86880; 86900; 86901; 86920; 87040; 87070; 87077; 87081; 87086; 87088; 87186; 87205; 87340; 93005; 94002; 94003; 94640; 94761; 95819; 96374; 96379; A6257; C9113; J0171; J0330; J0610; J1450; J1561; J1815; J2248; J2250; J2543; J3430; J3480; J7060; J7131; P9047